=== PATIENT | male | born 1930 | race Caucasian/White ===

== ENCOUNTER 2019-06-03 11:35 | Inpatient (IN) | payer MEDICARE, OTHER ==
[~2019-06-03] VITALS: Ht 170.2 cm; Wt 84.4 kg
[~2019-06-03 11:35] MED LIST: CINNAMON500 MG PO; LASIX40 MG PO; LEVOTHYROXINE75 MCG PO; METOPROLOL SUCC25 MG PO; POTASSIUM CHLO20 ME1 PO; PROBENECID500 MG PO; SIMVASTATIN20 MG PO; SPIRONOLACTONE25 MG PO; TAZTIA XT360 MG PO; VITAMIN B-12500 MCG PO; WARFARIN SODIUM1 MG PO
[2019-06-03] MEDS ORDERED: FUROSEMIDE80 MG PO (16:57)
[2019-06-03] MEDS ORDERED: POTASSIUM CHLO20 ME1 PO (16:58)
--- NOTE | 2019-06-04 12:26 | EKG ---
[facility] [address] [facility] [place] [address] Signed Atrial fibrillation with premature ventricular or aberrantly conducted complexes Left axis deviation Right bundle branch block Inferior infarct , age undetermined Abnormal ECG No previous ECGs available Confirmed by ELMER DOMINGO MD ([id number]) on 06/04/2019 12:25:50 PM Electronically Signed By: ELMER DOMINGO MD 06/04/19 1226 PATIENT NAME: AFSHIN JIMÉNEZ Electrocardiogram DATE OF : [birth year] PHYSICIAN: ELMER DOMINGO MD REPORT #: [id number] REPORT IS CONFIDENTIAL AND NOT TO BE RELEASED WITHOUT AUTHORIZATION
== END 2019-06-08 13:55 | DRG 291 ==
LOC: ED 11:35 → CCU 16:21 → MS 06-04 22:20
PROVIDERS: ADMIT Internal Medicine
DX: I50.33 Acute on chronic diastolic (congestive) heart failure (principal); J96.91 Respiratory failure, unspecified with hypoxia; G93.41 Metabolic encephalopathy; I48.19 Other persistent atrial fibrillation; K59.00 Constipation, unspecified; E03.9 Hypothyroidism, unspecified; G47.33 Obstructive sleep apnea (adult) (pediatric); Z66 Do not resuscitate; Z79.01 Long term (current) use of anticoagulants; Z79.899 Other long term (current) drug therapy
CPT/HCPCS: 36415; 36600; 71045; 80048; 80053; 81001; 82803; 83735; 83880; 84484; 85025; 85610; 93005; 93010; 93306; 94660; 96374; 97110; 97163; 97165; 97535; 99285-25; J1120; J1940

== ENCOUNTER 2019-08-25 20:09 | Observation (INO) | payer MEDICARE, OTHER ==
[~2019-08-25] VITALS: Ht 170.2 cm; Wt 98.5 kg
--- OUTSIDE RECORDS SUMMARY | ~2019-08-25 | XMS | Encounter Summary ---
Demographics + + + | Address | [address] | | | [place] [address] | + + + | Home Phone | | + + + | Preferred Language | Unknown | + + + | Marital Status | | + + + | Bahai Affiliation | NON | + + + | Race | White | + + + | Ethnic Group | Not or | + + + Author + + + | Author | [facility] | + + + | Organization | [facility] | + + + | Address | Unknown | + + + | Phone | Unavailable | + + + Support + + + + + | Name | Relationship | Address | Phone | + + + + + | Lidia Lee | ECON | [address] | | | | | [place], [place] | | | | | [address] | | + + + + + Care Team Providers + +------+ + | Care Employment Trainer Name | Role | Phone | + +------+ + PCP | Unavailable | + +------+ + Encounter Details +--------+ + + + + | Date | Type | Department | Care Team | Description | +--------+ + + + + | 06/23/ | Office | General Internal | Note, Outpatient | Progress Note | | 1997 | Visit-Trans | Medicine [address] | Clinic | | | | chema | [address] | | | | | | Mailcode: [id number] | | | | | | Outpatient Clinic | | | | | | [facility] [address] | | | | | | [place], [place] | | | | | | [address] | | | | | | [phone] | | | +--------+ + + + + Social History + +-------+ +--------+------+ | Tobacco Use | Types | Packs/Day | Years | Date | | | | | Used | | + +-------+ +--------+------+ | Never Assessed | | | | | + +-------+ +--------+------+ + + + | Sex Assigned at | Date Recorded | | | | + + + | Not on file | | + + + + + + + | Job Start Date | Occupation | Industry | + + + + | Not on file | Not on file | Not on file | + + + + + + + + | Travel History | Travel Start | Travel End | + + + + + + | No recent travel history available. 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 After urinalysis showed no evidence of urinary tract infection, and the patient received an oral antibiotic consisting of 750 mg of Cipro, a transrectal ultrasound was performed. This demonstrated significant enlargement of the seminal vesicles but no evidence of tumor extension into the seminal vesicles or extension beyond the margins of the prostate. Biopsies were taken from the right seminal vesicle proximally in the area of its junction with the prostate and distally, with similar biopsies obtained from the left seminal vesicle. The patient tolerated the procedure well and was instructed to return for significant bleeding involving clots from the bladder or rectum, fever over 101 degrees, or any other significant problems. He was informed that full activity could be resumed within 24 hours and was to take another ciprofloxacin 750 mg tablet this evening. He will be informed of the results when they are available. Quoc Gonzalez M.D., P.C. Chief, Urologic Oncology Highway Maintainer, Surgery /[facility] documented in this encounter Plan of Treatment Not on filedocumented as of this encounter Visit Diagnoses Not on filedocumented in this encounter"
--- OUTSIDE RECORDS SUMMARY | ~2019-08-25 | XMS | Encounter Summary ---
Demographics + + + | Address | [address] | | | [place] [address] | + + + | Home Phone | | + + + | Preferred Language | Unknown | + + + | Marital Status | | + + + | Advent Affiliation | Unknown | + + + | Race | Unknown | + + + | Ethnic Group | Unknown | + + + Author + + + | Author | [facility] | | | and [place] | + + + | Organization | [facility] | | | and [place] | + + + | Address | Unknown | + + + | Phone | Unavailable | + + + Support + + +---------+ + | Name | Relationship | Address | Phone | + + +---------+ + | Aminta David | ECON | Unknown | | + + +---------+ + Care Team Providers + +------+ + | Care Bow Maker Production Name | Role | Phone | + +------+ + | Immanuel Oliveros MD | PCP | | + +------+ + Reason for Visit + + + | Reason | Comments | + + + | New Patient | | + + + Evaluate & Treat + +--------+ + + + + | Status | Reason | Specialty | Diagnoses / | Referred By | Referred To | | | | | Procedures | Contact | Contact | + +--------+ + + + + | Authorized | | Plastic | Diagnoses | Philippe, | Pema, | | | | Surgery | Forehead | Jose Patterson, | Cody | | | | | wound | [address] | MD Miguel | | | | | Exposed bone | [address] | [address] | | | | | after | [place], | [place], | | | | | resection of | [place] | [place] [address] | | | | | basal cell | [address] | Phone: | | | | | carcinoma | Phone: | [phone] | | | | | Procedures | [phone] | Fax: | | | | | [place] OFFICE | Fax: | [phone] | | | | | OUTPATIENT | [phone] | | | | | | NEW 60 | | | | | | | MINUTES | | | + +--------+ + + + + Encounter Details +--------+---------+ + + + | Date | Type | Department | Care Team | Description | +--------+---------+ + + + | 04/08/ | Office | [facility] | Cody Mcadams | Basal cell carcinoma | | 2020 | Visit | SURGERY [address] | MD Miguel [address] | (BCC) of scalp | | | | [place], [place] | [address] [place] | (Primary Dx); | | | | [address] | [place] [address] | Hypertension, | | | | [phone] | [phone] | unspecified type | | | | | | | +--------+---------+ + + + Social History + +-------+ +--------+------+ | Tobacco Use | Types | Packs/Day | Years | Date | | | | | Used | | + +-------+ +--------+------+ | Never Smoker | | | | | + +-------+ +--------+------+ + +------+---+ + | Smokeless Tobacco: | Chew | | Quit: | | Former User | | | 04/08/18 | | | | | 85 | + +------+---+ + + + +---------+ + | Alcohol Use | Drinks/Week | oz/Week | Comments | + + +---------+ + | Not Asked | | | | + + +---------+ + + + + | Sex Assigned at [...] + + documented as of this encounter Last Filed Vital Signs + + + + + | Vital Sign | Reading | Time Taken | Comments | + + + + + | Blood Pressure | 122/70 | 04/08/2019 1:05 PM | | | | | PST | | + + + + + | Pulse | 70 | 04/08/2019 1:05 PM | | | | | PST | | + + + + + | Temperature | 36.9 C (98.4 F) | 04/08/2019 1:05 PM | | | | | PST | | + + + + + | Respiratory Rate | - | - | | + + + + + | Oxygen Saturation | 97% | 04/08/2019 1:05 PM | | | | | PST | | + + + + + | Inhaled Oxygen | - | - | | | Concentration | | | | + + + + + | Weight | 91.9 kg (202 lb 9.6 | 04/08/2019 1:05 PM | | | | oz) | PST | | + + + + + | Height | 170.2 cm (5' 7") | 04/08/2019 1:05 PM | | | | | PST | | + + + + + | Body Mass Index | 31.73 | 04/08/2019 1:05 PM | | | | | PST | | + + + + + documented in this encounter Patient Instructions Patient Instructions Etta Chopra RN - 04/08/2019 1:00 PM PST Take no Aspirin containing products for 7 days prior to surgery on 05/07/2019. Hold your Spironolactone on the morning of surgery. I will check with your provider regarding stopping your warfarin prior to surgery. I will c ontact you with recommendations. DO NOT EAT OR DRINK ANYTHING EIGHT HOURS before your surgery. This means no coffee, water, juice or toast on the morning of your surgery. The only exception is essential medicines w ith a small sip of water (or just enough to get the pills down safely). I have faxed the orders for your pre-op testing to [facility]. Please go by the hospital about one week prior to surgery and have the testing completed. On 05/07/2019 check in at Same Day Surgery ([address]) at 11:15 am. Your surgery is called Scalp wound debridement with full-thickness skin graft repair. It will start about 1:15 pm and will finish about 2:45 pm. You will be ready to go home Same Day. Anesthesia type recommended: Choice General IV Sedation with local anesthesia (MAC) IV Sedation Other MAKE ARRANGEMENTS FOR A RESPONSIBLE ADULT TO DRIVE YOU HOME. If you have any questions, please call at . Your nurse's name is Etta DUTTA. Your surgeon's name is Dr. Mcadams. I look forward to your having a safe, successful and comfortable surgery. Sign up for amprice if you want easy access to your medical information online. You can: Review your medications, immunizations, allergies and medical history. View details of your past and upcoming appointments. Sign up for amprice if you want easy access to your medical information online. Only you, your doctor and your health care team are permitted to view the information sent through Certeon. Through amprice you can: ? Review your medications, immunizations, allergies and medical history. ? View details of your past and upcoming appointments. ? Receive test results online no waiting for a phone call or letter ? Review health education topics and discharge instructions provided by your physician. ? Send secure emails to your healthcare team. ? Request renewals of your medications online ? Link your family s accounts to yours for convenient access to appointments, immunizatio n records, growth charts and more. Below are the different ways you can sign up for amprice: ? The first way is to get online at: [email or web address] and sign up directly throug h the website prior to your appointment with us. You can call [phone] ([phone]) if you have any questions or need assistance. ? The second way is through the amprice dominic which can be accessed with any smart phone. Ju st go to your dominic store and look up ServiceNow. ? The third way is to do it while you wait in the room for the doctor at your appointment. The nurse is available if you have any questions or need assistance. You will need the following information to sign up: Email address: User name: Password: Password must be at least 8 characters long, less than 20 characters, and it must have at l east 1 upper case letter and 1 lower case letter as well as at least 1 number. documented in this encounter Progress Notes Cody Mcadams MD - 04/08/2019 1:00 PM PSTFormatting of this note might be differ ent from the original. [facility] ADMIT HISTORY AND PHYSICAL Primary Care Physician: Immanuel Oliveros PATIENT NAME: Jose G Lee : 1930 TODAY'S DATE: 04/08/2019 CHIEF COMPLAINT: New Patient REASON FOR CONSULTATION: Forehead wound Exposed bone after resection of basal cell carcino ma History OF PRESENT ILLNESS: I was asked by Dr. Paez to consult on this patient for Plastic surgery. Jose G Lee is a 89 y.o. male with Forehead wound Exposed bone after resection of basal c ell carcinoma. 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 Les ion was excised 2018 with and repaired with a bilateral advance flap. The flap cherry led and now has a large defect with exposed bone. He is here to see about possible skin chip ting. 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 Current dressing include Aquafore ointment, povidone iodine ointment, gauze pad, and padded bandage. Bandage is changed every few days. Denies noticeable pain, only when being cleaned . Patient is on a very low dose Warfarin 5 days a week for chronic A fib. Patients daughters would like to know if the area would close on its own or if a skin graft is needed. Opioid Risk Tool (ORT): Total Score 0 (04/08/19 7125) (0 to 3 = Low risk: 6% chance of developing problematic behaviors, 4 to 7 = Moderate risk: 28% chance of developing problematic behaviors, 8 or more = High risk: 90% chance of develop ing problematic behaviors.) PAST MEDICAL HISTORY Past Medical History: Diagnosis Date Atrial fibrillation (HCC) Congestive heart failure (CHF) (HCC) Gout Hyperlipidemia Hypertension Hypothyroidism Impaired fasting glucose Peripheral neuropathy Prostate cancer (HCC) Venous insufficiency Vitamin D deficiency PAST SURGICAL HISTORY Past Surgical History: Procedure Laterality Date CARPAL TUNNEL RELEASE Bilateral Wrists Cataract Right 2013 COLONOSCOPY KNEE SURGERY Right 1965 PROSTATECTOMY 1997 CURRENT MEDICATIONS Current Outpatient Medications Medication Sig Dispense Refill cholecalciferol (VITAMIN D-3) 400 UNITS TABS Take 400 Units by mouth Daily. cyanocobalamin (VITAMIN B-12) 500 mcg tablet Take 500 mcg by mouth Daily. dilTIAZem (CARDIZEM CD) 360 MG 24 hr capsule Take 360 mg by mouth Daily. levothyroxine (SYNTHROID) 75 mcg tablet Take 75 mcg by mouth Daily. spironolactone (ALDACTONE) 25 mg tablet Take 25 mg by mouth Daily. warfarin (COUMADIN) 1 mg tablet Take 1 mg by mouth Daily. No current facility-administered medications for this visit. ALLERGIES No Known Allergies FAMILY HISTORY There is no known family history of premature coronary artery disease, CVA nor diabetes. SOCIAL HISTORY The pt reports that he has never smoked. He quit smokeless tobacco use about 35 years ago. His smokeless tobacco use included chew. REVIEW OF SYSTEMS Review of Systems Constitutional: Negative. HENT: Negative. Eyes: Negative. Respiratory: Negative. Cardiovascular: Negative. Gastrointestinal: Negative. Genitourinary: Negative. Musculoskeletal: Negative. Skin: Negative. Neurological: Negative. Endo/Heme/Allergies: Negative. Psychiatric/Behavioral: Positive for memory loss. Some memory loss PHYSICAL EXAM BP 122/70 | Pulse 70 | Temp 36.9 C (98.4 F) (Temporal) | Ht 1.702 m (5' 7") | Wt 91 .9 kg (202 lb 9.6 oz) | SpO2 97% | BMI 31.73 kg/m Wt. Admission: Weight: 91.9 kg (202 lb 9.6 oz) Physical Exam Constitutional: Appearance: Normal appearance. HENT: Head: Normocephalic. Eyes: Extraocular Movements: Extraocular movements intact. Pupils: Pupils are equal, round, and reactive to light. Neck: Musculoskeletal: Normal range of motion and neck supple. Pulmonary: Effort: Pulmonary effort is normal. Breath sounds: Normal breath sounds. Musculoskeletal: Normal range of motion. Skin: General: Skin is warm and dry. Comments: 6 x 3 cm wound, geographical shape, R anterior scalp and onto forehead. 1 x 2 cm area of exposed dessicated bone in the mid portion. Granulating tissue around the nevin n. Contracted rolled skin margins. Extensive actinic and seborrheic skin changes on the sc alp. The surrounding scalp is stiff and immobile. Neurological: General: No focal deficit present. Mental Status: He is alert and oriented to person, place, and time. Psychiatric: Mood and Affect: Mood normal. Behavior: Behavior normal. ASSESSMENT & PLAN: 1. Basal cell carcinoma (BCC) of scalp Right anterior scalp and forehead wound secondary to BCC excision. Mostly granulating tiss ue but there is a limited area of exposed desiccated calvarial bone. It would be difficult for the patient to perform a large flap procedure, but we may be able to skin graft the woun d. The exposed calvarium may be small enough that we can remove the outer table to expose t he diploe and graft directly. Or if it is felt to be too large at the time of surgery, the diploe can be covered with Integra for secondary closure or delayed grafting after revascula rization. The planned procedure, incision and resultant scar, graft donor site, risks and complicatio ns, post op care, and possible need for additional surgery, was discussed. He will need to hold coumadin prior to surgery. Electronically Signed by: Cody Mcadams MD CC: Immanuel Oliveros MD, Jose Paez MD documented in this encounter Plan of Treatment + +------+--------+ + + | Name | Type | Priori | Associated Diagnoses | Order Schedule | | | | ty | | | + +------+--------+ + + | Basic Metabolic | Lab | Routin | Basal cell | 1 Occurrences | | Panel | | e | carcinoma (BCC) of | starting 04/08/2019 | | | | | scalp | until 04/08/2020 | + +------+--------+ + + | CBC with | Lab | Routin | Basal cell | 1 Occurrences | | Differential | | e | carcinoma (BCC) of | starting 04/08/2019 | | | | | scalp | until 04/08/2020 | + +------+--------+ + + | ECG 12 lead | ECG | Routin | Hypertension, | 1 Occurrences | | | | e | unspecified type | starting 04/08/2019 | | | | | Basal cell carcinoma | until 04/08/2020 | | | | | (BCC) of scalp | | + +------+--------+ + + documented as of this encounter Visit Diagnoses + + | Diagnosis | + + | Basal cell carcinoma (BCC) of scalp - Primary | + + | Hypertension, unspecified type | + + documented in this encounter
--- OUTSIDE RECORDS SUMMARY | ~2019-08-25 | XMS | Clinical Summary ---
Demographics + + + | Address | [address] | | | [place] [address] | + + + | Home Phone | | + + + | Preferred Language | Unknown | + + + | Marital Status | | + + + | Faith Affiliation | NON | + + + | Race | White | + + + | Ethnic Group | Not or | + + + Author + + + | Organization | Unknown | + + + | Address | Unknown | + + + | Phone | Unavailable | + + + Support + + + + + | Name | Relationship | Address | Phone | + + + + + | Lidia Lee | ECON | [address] | | | | | [place], [place] | | | | | [address] | | + + + + + Care Team Providers + +------+ + | Care Gauge Maker Name | Role | Phone | + +------+ + PCP | Unavailable | + +------+ + Source Comments MANJU is fully live on both [facility] and [facility] Allergies No Known Allergies Medications Not on file Active Problems Not on file Social History + +-------+ +--------+------+ | Tobacco [...] recent travel history available. | + + Last Filed Vital Signs Not on file Plan of Treatment + + + + + | Health Maintenance | Due Date | Last Done | Comments | + + + + + | Pneumococcal | | | | | vaccination ( | 5 | | | | - PCV13) | | | | + + + + + | Influenza (Flu) | | | | | vaccination (#1) | 9 | | | + + + + + Results Not on filefrom Last 3 Months"
--- OUTSIDE RECORDS SUMMARY | ~2019-08-25 | XMS | Encounter Summary ---
Demographics + + + | Address | [address] | | | [place] [address] | + + + | Home Phone | | + + + | Preferred Language | Unknown | + + + | Marital Status | | + + + | Jew Affiliation | Unknown | + + + | Race | Unknown | + + + | Ethnic Group | Unknown | + + + Author + + + | Author | [facility] | | | and [place] | + + + | Organization | [facility] | | | and [...] Team Providers + +------+ + | Care Field Machinist Name | Role | Phone | + +------+ + | Immanuel Oliveros MD | PCP | | + +------+ + Reason for Visit + + + | Reason | Comments | + + + | Wrist Pain | Bilateral wrist pain | + + + | Numbness | | + + + Encounter Details +--------+---------+ + + + | Date | Type | Department | Care Team | Description | +--------+---------+ + + + | 04/16/ | Office | [facility] | Sincere Damon | Carpal tunnel | | 2012 | Visit | PHYSIATRY [address] | syndrome (Primary | | | | [address] | [address] [place], [place] | Dx); DEGENERATIVE | | | | [place], [place] | [address] | DISC DISEASE, | | | | [address] | | CERVICAL SPINE; | | | | [phone] | | Diabetes mellitus | | | | | | (HCC); Diabetic | | | | | | peripheral | | | | | | neuropathy ([facility]); | | | | | | Paresthesia | +--------+---------+ + + + Social History + +-------+ +--------+------+ | Tobacco Use | Types | Packs/Day | Years | Date | | | | | Used | | + +-------+ +--------+------+ | Never Smoker | | | | | + +-------+ +--------+------+ + + +---------+ + | Alcohol Use [...] + + + | Blood Pressure | 128/85 | 04/16/2012 10:52 AM | | | | | PST | | + + + + + | Pulse | 69 | 04/16/2012 10:52 AM | | | | | PST | | + + + + + | Temperature | - | - | | + + + + + | Respiratory Rate | - | - | | + + + + + | Oxygen Saturation | - | - | | + + + + + | Inhaled Oxygen | - | - | | | Concentration | | | | + + + + + | Weight | 95.3 kg (210 lb) | 04/16/2012 10:52 AM | | | | | PST | | + + + + + | Height | 165.1 cm (5' 5") | 04/16/2012 10:52 AM | | | | | PST | | + + + + + | Body Mass Index | 34.95 | 04/16/2012 10:52 AM | | | | | PST | | + + + + + documented in this encounter Patient Instructions Patient Instructions Sincere Damon MD - 05/11/2012 6:20 AM PSTIce the area as needed for 15-20 minutes several times over the next few days. Watch for signs of infection. Alejandro l with questions or concerns. documented in this encounter Progress Notes Sincere Damon MD - 04/16/2012 10:57 AM PST Subjective: Patient ID: Jose G Lee is a 82 y.o. male. Chief Complaint Patient presents with Wrist Pain Bilateral wrist pain Numbness HPI The patient is being seen today in follow-up for complaints of bilateral wrist pain as well as numbness in the first three digits on both hands. The patient had prior carpal tunne l releases in 1999. He reports that for several years after he had improvement of his sympt oms. The symptoms then started to reoccur approximately 3 years ago. He was having signifi cant neck pain at that time as well and x-rays and an MRI were ordered. He was found to hav e significant DDD and some cervical stenosis. He then had EMG and nerve conduction studies by Dr. 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 He did n ot mention any evidence of cervical radiculopathy. He did have some evidence of a periphera l neuropathy. After the EMG he was then referred to me for potential carpal tunnel injection s. I felt it would be in his best interest to try carpal tunnel splints first. He has trie d them and unfortunately they did not help. He describes his symptoms as burning, uncomfortable numbness. The discomfort is fairly con stant and not necessarily activity related. He does also have significant stiffness in a lo t of his joints including his wrists. Treatments for these complaints have included previous carpal tunnel release in 1998, as we ll as the carpal tunnel splints. (PT, injections, medications, chiropractic, TENS unit, surg eries, etc...) Imaging of the cervical spine, including an MRI were reviewed today in detail with the haroldo ent. I did also personally review the EMG report from Dr. Izaguirre. Patient's medications, allergies, past medical, surgical, social and family histories were reviewed and updated as appropriate. Review of Systems The patient reported only the joint stiffness and numbness/dysesthesias as above. Objective: Physical Exam Nursing note and vitals reviewed. Constitutional: He is oriented to person, place, and time. He appears well-developed and we ll-nourished. HENT: Head: Normocephalic and atraumatic. Neck: No tracheal deviation present. Cardiovascular: Normal rate and regular rhythm. Pulmonary/Chest: Effort normal and breath sounds normal. No respiratory distress. Lymphadenopathy: He has no cervical adenopathy. Neurological: He is alert and oriented to person, place, and time. He has normal strength. No cranial nerve deficit or sensory deficit. He displays no Babinski's sign on the right aby e. He displays no Babinski's sign on the left side. Skin: Skin is warm, dry and intact. No abrasion, no bruising, no ecchymosis, no laceration and no rash noted. Psychiatric: He has a normal mood and affect. His speech is normal and behavior is normal. Thought content normal. Cognition and memory are normal. Musculoskeletal: Strength testing in bilateral upper extremities showed 5/5 strength with n o focal weakness. Range of motion testing of the cervical spine showed limitations in all p lanes but was fairly pain free. Spurling sign was negative. He did not have positive Tinel' s or Phalen's sign. Assessment: 1. Carpal tunnel syndrome 2. DDD cervical spine 3. Diabetes mellitus 4. Diabetic peripheral neuropathy 5. Paresthesia - it is unclear which of the above issues is causing his current symptoms. It is quite possibly a combination of all of the above. Plan: 1. I did review the EMG report by Dr. Aleksandr Izaguirre. Certainly, based on the numbers, th e recurrent or residual carpal tunnel syndrome seems to be the greatest source of the patien jose's current symptoms or at least a significant contributing source. It has been suggested t hat the patient may benefit from carpal tunnel injections and the patient does wish to pursu e this option and consented to the procedure on both wrists today. 2. Description of procedure: Bilateral carpal tunnel injections were performed using ultras ound guidance. After the patient gave consent for the procedure the area for the left wrist injection was located by direct ultrasound visualization. Then the area was sterilized with chlorhexidine scrub and a sterile drape was applied. A sterile probe cover and sterile ultrasound gel was applied to the probe. Then under direct ultrasound guidance a 27-gauge 1-1/2 inch needle w as inserted down into the carpal tunnel just deep to the median nerve. A total volume of 2 mL including 1 mL of triamcinolone ( 40 milligrams per mL) and 1 mL of 1% lidocaine was then infused. Pictures were taken to document needle placement. The needle was then removed and the area was cleaned and bandaged. The procedure was then repeated in the same manner on th e right. The patient tolerated the procedure well. There were no complications. The patien jose was instructed to ice the area for 15-20 minutes several times over the next few days and to watch for any signs of infection. 3. The above procedures may prove both therapeutic and diagnostic. I will contact the pat ient in a few weeks to see how he responded to the procedure and further plan of care will b e determined at that time. documented in this encounter Plan of Treatment Not on filedocumented as of this encounter Visit Diagnoses + + | Diagnosis | + + | Carpal tunnel syndrome - Primary | + + | DEGENERATIVE DISC DISEASE, CERVICAL SPINE Degeneration of cervical intervertebral | | disc | + + | Diabetes mellitus (HCC) Type II or unspecified type diabetes mellitus without mention | | of complication, not stated as uncontrolled | + + | Diabetic peripheral neuropathy (HCC) Type II or unspecified type diabetes mellitus | | with neurological manifestations, not stated as uncontrolled | + + | Paresthesia Disturbance of skin sensation | + + documented in this encounter
--- OUTSIDE RECORDS SUMMARY | ~2019-08-25 | XMS | Encounter Summary ---
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 Please go by the hospital about one week prior to surgery and have the testing completed. On 05/07/2019 check in at Same Day Surgery (corner of [address]) at 11:15 am. Your surgery is called [...] successful and comfortable surgery. Sign up for [employer] if you want easy access to your medical information online. You can: Review your medications, immunizations, allergies and medical history. View details of your past and upcoming appointments. Sign up for [employer] if you want easy access to your medical information online. Only you, your doctor and your health care team are permitted to view the information sent through [employer]. Through [employer] you can: ? Review your medications, immunizations, [...] different ways you can sign up for [employer]: ? The first way is to get online at: [email or web address] and sign up directly throug h the website prior to your appointment with us. You can call [phone] ([phone]) if you have any questions or need assistance. ? The second way is through the [employer] dominic which can be accessed with any smart phone. Ju st go to your dominic store and look up [employer]. ? The third way is to do [...] might be differ ent from the original. [facility] ADMIT HISTORY AND PHYSICAL Primary Care [...] Risk Tool (ORT): Total Score 0 (04/08/19 1665) (0 to 3 = Low risk: 6% [...]
--- OUTSIDE RECORDS SUMMARY | ~2019-08-25 | XMS | Encounter Summary ---
Demographics + + + | Address | [address] | | | [place] [address] | + + + | Home Phone | | + + + | Preferred Language | Unknown | + + + | Marital Status | | + + + | Taoist Affiliation | NON | + + + | Race | White | + + + | Ethnic Group | Not or | + + + Author + + + | Author | [facility] | + + + | Organization | [facility] | + + + | Address | Unknown | + + + | Phone | Unavailable | + + + Support + + + + + | Name | Relationship | Address | Phone | + + + + + | Lidia Lee | ECON | [address] | | | | | [place], [place] | | | | | [address] | | + + + + + Care Team Providers + +------+ + | Care Fund Accounting Manager Name | Role | Phone | + +------+ + PCP | Unavailable | + +------+ + Encounter Details +--------+ + + + + | Date | Type | Department | Care Team | Description | +--------+ + + + + | 10/06/ | Office | [facility] | Note, Outpatient | Progress Note | | 1998 | Visit-Trans | MEDICINE | Clinic | | | | cribed | | | | +--------+ + + + [...] as of this encounter Progress Notes Interface, Rug Scratcher In - 04/08/2006 5:02 AM [facility] DATE: 10/06/97 UROLOGY/ONCOLOGY CLINIC Mr. Lee is a 67-year-old male who was found to have elevated PSA of 20.9 with a 5% free PSA fraction, and an abnormal digital rectal examination. He underwent biopsy of the prostate revealing Maury score of 3+/-4, adenocarcinoma of the left base, left mid and right base. This was an amuploid tumor. He subsequently underwent radical retropubic prostatectomy with bilateral pelvic lymph node dissection on 08/03/97. His postoperative course was unremarkable. His Bolden catheter was removed in two weeks and he has had no problems since that time. He returns today for routine followup. Patient states that he is currently dry as far as urinary continence is concerned. He wears no pads. He does complain of nocturia times one at night. He has no significant urge component. He is happy as far as this is concerned. Patient has had no erection since surgery and he is not interested in discussing any therapy at this time although outlined what possible therapies would be available for him if he continued to have erectile dysfunction after surgery. He brings his PSA in from his primary care doctor. It is at 6 weeks (09/15/97) undetectable at less than 0.04 by his laboratory's standards. Patient has no other concerns or complaints today. OBJECTIVE: Abdomen is soft and nontender. The incision is healing well without evidence of infection or hernia. Extremities no edema. No calf tenderness. ASSESSMENT: Doing well after radical prostatectomy with undetectable PSA. PLAN: 1. Followup with us in four months or if patient desires he may have further followup care performed up by his primary care physician, Dr. Immanuel Giles. We recommend PSA to be checked every 3 months for the first year and then yearly after that. 2. I explained to patient that he needs to be concerned and notify us if he has problems with decreasing force of urinary stream, bony pain or PSA begins to elevate on routine testing. Johnathan Bull M.D. Resident, Urology DAVID/ariel cc: SHAVONNE GILES MD [address] [place] [place] [address] documented in this encounter Plan of Treatment Not on filedocumented as of this encounter Visit Diagnoses Not on filedocumented in this encounter"
--- OUTSIDE RECORDS SUMMARY | ~2019-08-25 | XMS | Encounter Summary ---
Demographics + + + | Address | [address] | | | [place] [address] | + + + | Home Phone | | + + + | Preferred Language | Unknown | + + + | Marital Status | | + + + | Yarsanism Affiliation | NON | + + + | Race | White | + + + | Ethnic Group | Not or | + + + Author + + + | Author | [facility] | + + + | Organization | [facility] | + + + | Address | Unknown | + + + | Phone | Unavailable | + + + Support + + + + + | Name | Relationship | Address | Phone | + + + + + | Lidia Lee | ECON | [address] | | | | | [place], [place] | | | | | [address] | | + + + + + Care Team Providers + +------+ + | Care Director Of Professional Services Name | Role | Phone | + +------+ + PCP | Unavailable | + +------+ + Encounter Details +--------+ + + + + | Date | Type | Department | Care Team | Description | +--------+ + + + + | 08/03/ | Results | LAB [facility] [address] | Mayela, Faculty | | | 1997 | Only | [address] | [phone] | | | | | [place] | | | | | | [address] | | | | | | [phone] | | | +--------+ + + + [...] + + documented as of this encounter Plan of Treatment Not on filedocumented as of this encounter Procedures + +--------+ + + + | Procedure Name | Priori | Date/Time | Associated Diagnosis | Comments | | | ty | | | | + +--------+ + + + | SURGICAL PATHOLOGY | Routin | 08/03/1997 | | Results for this | | | e | | | procedure are in the | | | | | | results section. | + +--------+ + + + documented in this encounter Results SURGICAL PATHOLOGY (08/03/1997) + + + + + + | Component | Value | Ref Range | Performed | Pathologist | | | | | At | Signature | + + + + + + | SURGICAL | SOURCE OF SPECIMEN: SEE | | [facility] | | | PATHOLOGY | RESULTS | | DEPARTMENT | | | | Preliminary | | OF | | | | History:FROZEN SECTION | | PATHOLOGY | | | | DIAGNOSISRIGHT PELVIC | | | | | | NODE (SPECIMEN #1): NO | | | | | | TUMOR SEENLEFT PELVIC | | | | | | NODE (SPECIMEN #2): NO | | | | | | TUMOR SEEN | | | | | | Confirmed by: Belinda | | | | | | Lili Andre and Mathew | | | | | | Lili White | | | | | | CLINICAL HISTORY | | | | | | Patient Age: [age] year old | | | | | | man Patient | | | | | | History: Prostate | | | | | | specific antigens (PSA) | | | | | | of 27 and high | | | | | | gradeadenocarcinoma of | | | | | | the prostate found by | | | | | | physical exam to have a | | | | | | nodule.Biopsy revealed | | | | | | extensive tumor. Rule | | | | | | out tumor extension | | | | | | beyond thecapsule and/or | | | | | | at the surgical | | | | | | margins. GROSS | | | | | | DESCRIPTION | | | | | | Specimens received: | | | | | | Two fresh, one in | | | | | | formalin #1 RIGHT | | | | | | PELVIC NODE (FS): | | | | | | Received fresh are | | | | | | several | | | | | | unorientedfragments of | | | | | | fibroadipose tissue | | | | | | measuring 5.5 x 2.7 x | | | | | | 1.5 cm. in | | | | | | looseaggregate. These | | | | | | tissues are sectioned | | | | | | and a manufacturer's representative | | | | | | lymph nodeis used for | | | | | | frozen section | | | | | | diagnosis. The remaining | | | | | | tissue fragments | | | | | | aresectioned. #2 | | | | | | LEFT PELVIS NODE (FS): | | | | | | Received fresh are | | | | | | several fragments | | | | | | ofunoriented | | | | | | fibroadipose tissue | | | | | | measuring 5.6 x 4.9 x | | | | | | 2.4 cm. in | | | | | | looseaggregate. These | | | | | | tissue fragments are | | | | | | sectioned. #3 | | | | | | PROSTATE: Received is a | | | | | | prostatectomy specimen | | | | | | weighing 52 g. | | | | | | andmeasuring 6 x 4.5 x | | | | | | 3.5 cm. The | | | | | | attached portion of left | | | | | | seminal vesicle | | | | | | measures 2 x 1 x 1 cm. | | | | | | andthe left vas deferens | | | | | | measures 3 cm. in | | | | | | length by 0.5 cm. in | | | | | | diameter.The attached | | | | | | portion of right seminal | | | | | | vesicle measures 2.5 x | | | | | | 1 x 1 cm.and the right | | | | | | vas deferens measures | | | | | | 2.6 cm. in length by 0.5 | | | | | | cm. indiameter. | | | | | | The left half of | | | | | | the specimen is inked | | | | | | black and the right half | | | | | | is inkedblue. The | | | | | | specimen is serially | | | | | | sectioned and notable | | | | | | for a gordillo | | | | | | poorlycircumscribed area | | | | | | along the middle left | | | | | | lobe which measures 1.7 | | | | | | cm. ingreatest | | | | | | dimension. There is an | | | | | | underlying circumscribed | | | | | | white nodule ofpossible | | | | | | benign prostatic | | | | | | hypertrophy deep to this | | | | | | area measuring 1.5cm. | | | | | | in greatest diameter. | | | | | | CASSETTE INDEX#1 | | | | | | RIGHT PELVIC NODE | | | | | | (FS):1A, tissue used for | | | | | | frozen section | | | | | | diagnosis, resubmitted, | | | | | | RS1B, all possible lymph | | | | | | nodes, RS#2 LEFT PELVIS | | | | | | NODE (FS):2A, tissue | | | | | | used for frozen section | | | | | | diagnosis, resubmitted, | | | | | | RS2B, all possible lymph | | | | | | nodes, RS#3 | | | | | | PROSTATE:3A-B, apical | | | | | | urethral margin, RS3C-D, | | | | | | surgical margin at | | | | | | base, RS3E-F, complete | | | | | | manufacturer's representative section | | | | | | of prostatic [id number], | | | | | | right and left middle | | | | | | lobes including area of | | | | | | possible tumor, RS3J-K, | | | | | | prostatic base, RS3L-M, | | | | | | seminal vesicles and vas | | | | | | deferens, RS All | | | | | | tissue sections taken | | | | | | are submitted for | | | | | | microscopic | | | | | | evaluation.WSS/GORDON:tg | | | | | | SYNOPTIC | | | | | | DESCRIPTION - PROSTATE, | | | | | | RADICAL PROSTATECTOMY | | | | | | FOR CARCINOMA | | | | | | TUMOR TYPE: | | | | | | Adenocarcinoma of | | | | | | prostateGLEASON'S SCORE | | | | | | 3/5+4/5 = 7/10TUMOR | | | | | | LOCATION: Quadrant: | | | | | | RIGHT LEFT | | | | | | | | | | | | [place] | | | | | | [place] | | | | | | | | | | | | Mid | | | | | | Mid | | | | | | | | | | | | BaseVASCULAR INVASION: | | | | | | | | | | | | NOPERINEURAL INVASION: | | | | | | | | | | | | YESTUMOR INVADES TO | | | | | | PROSTATIC APEX: | | | | | | NOTUMOR INVADES INTO | | | | | | PROSTATIC CAPSULE, BUT | | | | | | NOT BEYOND: | | | | | | YESSTAGING: | | | | | | Extracapsular | | | | | | extension | | | | | | | | | | | | (Stage pT3a) | | | | | | SURGICAL | | | | | | MARGINS: Tumor present | | | | | | at surgical margin: | | | | | | YES Specify | | | | | | site: Left | | | | | | midNON-NEOPLASTIC | | | | | | PROSTATE: | | | | | | Unremarkable: NO | | | | | | Abnormalities: | | | | | | Nodular | | | | | | hyperplasiaLYMPH NODES: | | | | | | Involved nodes/total | | | | | | nodes: 0/9 FINAL | | | | | | DIAGNOSIS#1 RIGHT | | | | | | PELVIC NODE: FOUR | | | | | | LYMPH NODES WITH NO | | | | | | TUMOR SEEN (0/4)#2 LEFT | | | | | | PELVIS NODE: FIVE | | | | | | LYMPH NODES WITH NO | | | | | | TUMOR SEEN (0/5)#3 | | | | | | PROSTATE: 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 Case reviewed | | | | | | by: Shari Julien, | | | | | | Student FellowCase | | | | | | staffed by: Jason Heredia | | | | | | New, | | | | | | M.D. / My | | | | | | electronic signature | | | | | | indicates that I have | | | | | | personally reviewed | | | | | | alldiagnostic slides, | | | | | | the gross and/or | | | | | | microscopic portion of | | | | | | thisreport and | | | | | | formulated the final | | | | | | diagnosis. | | | | + + + + + + + + | Specimen | + + | Other | + + + + + + + | Performing | Address | City/State/Zipcode | Phone Number | | Organization | | | | + + + + + | [facility] | [address] | [place] [address] | | | PATHOLOGY | [address] | | | + + + + + documented in this encounter Visit Diagnoses Not on filedocumented in this encounter"
--- OUTSIDE RECORDS SUMMARY | ~2019-08-25 | XMS | Encounter Summary ---
Demographics + + + | Address | [address] | | | [place] [address] | + + + | Home Phone | | + + + | Preferred Language | Unknown | + + + | Marital Status | | + + + | Jain Affiliation | NON | + + + | Race | White | + + + | Ethnic Group | Not or | + + + Author + + + | Author | [facility] | + + + | Organization | [facility] | + + + | Address | Unknown | + + + | Phone | Unavailable | + + + Support + + + + + | Name | Relationship | Address | Phone | + + + + + | Lidia Lee | ECON | [address] | | | | | [place], [place] | | | | | [address] | | + + + + + Care Team Providers + +------+ + | Care Sheltered Workshop Executive Director Name | Role | Phone | + +------+ + PCP | Unavailable | + +------+ + Encounter Details +--------+ + + + + | Date | Type | Department | Care Team | Description | +--------+ + + + + | 08/05/ | Discharge | Allergy Clinic at | Summary, Discharge | D/C Summary ODDS | | 1997 | Summary-Tra | [facility] [address] | | | | | nscribed | [address] | | | | | | [address] | | | | | | [facility], 7th floor | | | | | | [place], [place] | | | | | | [address] | | | | | | [phone] | | | +--------+ + + + [...] + + documented as of this encounter Discharge Summaries Interface, Methodologist In - 04/15/2006 3:05 AM PST [address] [address] [facility] MEDICAL SUMMARY OF HOSPITALIZATION Med Rec No.: [id number] Admission Date: 08/03/97 Name: Jose G Lee Discharge Date: 08/05/97 STAFF PHYSICIAN: Quoc Gonzalez M.D[facility] Chief, Urologic Oncology Policy And Planning Manager, Surgery PRINCIPAL FINAL DIAGNOSIS: Prostate carcinoma. PRINCIPAL PROCEDURE: Radical retropubic prostatectomy and bilateral pelvic lymph node dissection. 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 He had previously undergone follow up seminal vesicle biopsies which were negative. He preferred to undergo a radical retropubic prostatectomy. Intraoperative frozen sections from a pelvic lymph node dissection were negative. HOSPITAL COURSE: The patient was admitted postoperatively from the above procedure which he tolerated very well, with the frozen sections of the lymph nodes obviously negative, given that he also underwent the radical retropubic prostatectomy. He was start don sips on postoperative day one and advanced to clears and a regular diet by postoperative day two. He remained afebrile with stable vital signs and minimal output from his Kwadwo-Last drain which was also discontinued on the morning of postoperative day two. The patient is being discharged to home on postoperative day two. He was tolerating a regular diet, passing gas and having undergone leg bag and night bag instructions for Bolden catheter management. CONDITION ON DISCHARGE: Stable. DISCHARGE MEDICATION(S): Tylox 1-2 tablets q. 6 h. p.r.n. Colace 100 mg p.o. b.i.d. Bactrim DS 1 tablet p.o. b.i.d., to be taken after the catheter is removed. DISCHARGE INSTRUCTION(S): Discharge Activity: His activity is restricted to no lifting of greater than 10 pounds. Discharge Diet: Resume a normal preoperative diet. Follow-up Recommendations: 1. Follow up with Doctor Quoc Gonzalez in Urology in 8 weeks. 2. He will follow up with his referring physician in two weeks for catheter removal. Gume Ly M.D. Resident, Urology Quoc Gonzalez M.D[facility] Chief, Urologic Oncology Policy And Planning Manager, SurgerySUZYK/rb P cc: ANNEMARIE GILES MD [address] [place] [address] documented in this encounter Plan of Treatment Not on filedocumented as of this encounter Visit Diagnoses Not on filedocumented in this encounter"
--- OUTSIDE RECORDS SUMMARY | ~2019-08-25 | XMS | Encounter Summary ---
Demographics + + + | Address | [address] | | | [place] [address] | + + + | Home Phone | | + + + | Preferred Language | Unknown | + + + | Marital Status | | + + + | Cheondoism Affiliation | NON | + + + [...] [place], [place] | | | | | [address] | | + + + + + Care Team Providers + +------+ + | Care Director Insurance Name | Role | Phone | + +------+ + PCP | Unavailable | + +------+ + Encounter Details +--------+ + + + + | Date | Type | Department | Care Team | Description | +--------+ + + + + | 08/02/ | Results | | Other, Faculty | | | 1997 | Only | | [phone] | | +--------+ + + + + [...] | + +--------+ + + + | X-RAY CHEST 2 VIEW | Priori | 08/02/1997 | | Results for this | | | ty | 4:40 PM | | procedure are in the | | | | PDT | | results section. | + +--------+ + + + documented in this encounter Results CHEST 2 VIEW (08/02/1997 4:40 PM PDT) + + + + + + | Component | Value | Ref Range | Performed | Pathologist | | | | | At | Signature | + + + + + + | CHEST, 2 | Radiologist 1: SATH[facility] | | | | | [place] | SUSIE Costa M.D.TWO VIEW | | | | | STEREO | CHEST: 08/02/97. | | | | | | Dictated: 08/02/97 | | | | | | COMPARISON: No | | | | | | comparison. FINDINGS: | | | | | | The lungs are clear. | | | | | | The heart is normal in | | | | | | size andconfiguration. | | | | | | Atherosclerotic | | | | | | changes are seen in the | | | | | | tortuousaorta. No | | | | | | effusion is evident. | | | | | | Degenerative changes | | | | | | are seen in thethoracic | | | | | | spine with mild anterior | | | | | | wedging of several | | | | | | midthoracicvertebral | | | | | | bodies. IMPRESSION: No | | | | | | evidence of an acute | | | | | | cardiopulmonary process. | | | | | | END OF IMPRESSION: | | | | + + + + + + + + | Specimen | + + | | + + + + + | Narrative | Performed At | + + + | Ordered by SEDRICK RAMIREZ M.D. | | + + + + +---------+ + + | Performing | Address | City/State/Zipcode | Phone Number | | Organization | | | | + +---------+ + + | [facility] DEPARTMENT OF | | | | | RADIOLOGY | | | | + +---------+ + + documented in this encounter Visit Diagnoses Not on filedocumented in this encounter"
--- OUTSIDE RECORDS SUMMARY | ~2019-08-25 | XMS | Encounter Summary ---
Demographics + + + | Address | [address] | | | [place] [address] | + + + | Home Phone | | + + + | Preferred Language | Unknown | + + + | Marital Status | | + + + | Latter-Day Affiliation | NON | + + + | Race | White | + + + | Ethnic Group | Not or | + + + Author + + + | Author | [facility] | + + + | Organization | [facility] | + + + | Address | Unknown | + + + | Phone | Unavailable | + + + Support + + + + + | Name | Relationship | Address | Phone | + + + + + | Lidia Lee | ECON | [address] | | | | | [place], [place] | | | | | [address] | | + + + + + Care Team Providers + +------+ + | Care Ammonia Worker Name | Role | Phone | + +------+ + PCP | Unavailable | + +------+ + Encounter Details +--------+ + + + + | Date | Type | Department | Care Team | Description | +--------+ + + + + | 06/24/ | Office | General Internal | Note, Outpatient | Progress Note | | 1997 | Visit-Trans | Medicine [address] | Clinic | | | | chema | [address] | | | | | | Mailcode: [id number] | | | | | | Outpatient Clinic | | | | | | [facility] [address] | | | | | | [place], [place] | | | | | | [address] | | | | | | [phone] | | | +--------+ + + + [...] as of this encounter Progress Notes Interface, Upstream Biomanufacturing Technician In - 04/18/2006 3:12 AM PST CLINIC DATE: 06/24/97 UROLOGY ONCOLOGY CLINIC SUBJECTIVE: This 67-year-old white male found on digital rectal examination to have a prostatic nodule. His serum PSA obtained at that time was 20.9 with a 5% free PSA fraction. For that reason, the patient was referred to Dr. Emmanuel in Urology undergoing a transrectal ultrasound with biopsy of the prostate. Biopsies revealed extensive adenocarcinoma involving four millimeters of Greenwood score 3+4 adenocarcinoma of the left base, six millimeters Greenwood score 7 adenocarcinoma of the left mid, and 10 milligrams of Greenwood score 6 adenocarcinoma of the right base. Ploide studies revealed an anuploid tumor. The patient was advised regarding his options and now comes to [facility] for opinions about treatment options. PAST MEDICAL HISTORY: Operative procedures: Open excision of damaged meniscus, 1950, right knee; excision of pilonidal cyst in 1954; bilateral carpal tunnel release in 1989. Major illnesses: Chronic hypertension, otherwise negative. MEDICATIONS: 1. Cardura 8 milligrams q day. 2. Allopurinol 300 milligrams q day. 3. Dyazide one tablet q day. 4. Aspirin one adult tablet q day. ALLERGIES: None known. 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 Tobacco use: The patient used one pack or less of cigarettes per day for severals, none for the last several years. Alcohol: Moderate use on a social basis. FAMILY HISTORY: Father age 77 of unknown causes. Mother age 66 from heart attack. REVIEW OF SYSTEMS: Basically noncontributory except for mild voiding dysfunction and is detailed in the clinical record of this date. OBJECTIVE: Blood pressure 164/90, temperature 95.5, weight 194. GENERAL: well-developed, well-nourished white male in no acute distress. ABDOMEN: Soft, nontender without organomegaly. Normal bowel sounds, no masses palpated. GENITALIA: Both testes descended without masses. Penis normal. Scrotum without lesions. RECTAL: The prostate is enlarged with a palpable area of firmness in the right midlobe, and an area of increased firmness along the midportion of the left lobe. Outside slides are not available for review. ASSESSMENT: Extensive adenocarcinoma of the prostate with several areas of pattern for tumor indicating an elevated PSA of 20. These findings of high grade tumor and PSA of 20 or greater indicate a high possibility of tumor involving the pelvic nodes, and tumor extending down the margins of the prostate. These possibilities are of extreme significance particularly prognostically to the patient and indicating the possibility of future therapeutic intervention effectiveness. My specific advice to the patient was that he undergo a biopsy of the seminal vesicles to eliminate seminal vesical involvement and if the seminal vesicles are not involved then a pelvic node dissection would be appropriate to eliminate the possibility of pelvic node involvement. The different types of sima dissection including open lymph node dissection, versus laparoscopic, essential risks and benefits of each were discussed in detail. The patient is aware that a laparoscopic node dissection has reduced morbidity with more rapid return to work, however, there are specific problems that can be associated with this procedure such as injury to adjacent visceral vascular structures, particularly vascular perforation from the trocars, complications of the CO2 insufflation such as CO2 embolus, irritation to the gastrointestinal tract. The patient appears to understand and desires to undergo a needle biopsy prior to embarking upon any further treatment. Quoc Gonzalez M.D[facility] Chief, Urologic Oncology Railroad Mechanic, Surgery /drew cc: BRITT GILES MD [address] [place] [address] 2 [facility] [address] HI[address] E[address]UEL DO [address] [facility] [id number] documented in this encounter Plan of Treatment Not on filedocumented as of this encounter Visit Diagnoses Not on filedocumented in this encounter"
--- OUTSIDE RECORDS SUMMARY | ~2019-08-25 | XMS | Encounter Summary ---
Demographics + + + | Address | [address] | | | [place] [address] | + + + | Home Phone | | + + + | Preferred Language | Unknown | + + + | Marital Status | | + + + | Latter Day Affiliation | NON | + + + | Race | White | + + + | Ethnic Group | Not or | + + + Author + + + | Author | [facility] | + + + | Organization | [facility] | + + + | Address | Unknown | + + + | Phone | Unavailable | + + + Support + + + + + | Name | Relationship | Address | Phone | + + + + + | Lidia Lee | ECON | [address] | | | | | [place], [place] | | | | | [address] | | + + + + + Care Team Providers + +------+ + | Care Economics Instructor Name | Role | Phone | + [...] Clinic | | | | | | [facility] [address] | | | | | | [place], [place] | | | | | | [address] | | | | | | [phone] | | | +--------+ + + + [...] as of this encounter Progress Notes Interface, Plate And Weld Inspector In - 04/18/2006 3:12 AM PST CLINIC [...] revealed extensive adenocarcinoma involving four millimeters of Leasburg score 3+4 adenocarcinoma of the left base, six millimeters Leasburg score 7 adenocarcinoma of the left mid, and 10 milligrams of Leasburg score 6 adenocarcinoma of the right base. Ploide studies revealed an anuploid tumor. The patient was advised regarding his options and now comes to [facility] for opinions about treatment options. 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 Tobacco use: The patient used [...] Quoc Gonzalez M.D., P.C. Chief, Urologic Oncology Plant Control Aide, Surgery /drew cc: BRITT GILES MD [address] [place] [address] 2 [facility] [address] HIEN EMMANU[address] DO [address] [facility] [address] documented in this encounter Plan of Treatment Not on filedocumented as of this encounter Visit Diagnoses Not on filedocumented in this encounter"
--- OUTSIDE RECORDS SUMMARY | ~2019-08-25 | XMS | Encounter Summary ---
Demographics + + + | Address | [address] | | | [place] [address] | + + + | Home Phone | | + + + | Preferred Language | Unknown | + + + | Marital Status | | + + + | Islam Affiliation | Unknown | + + + | Race | Unknown | + + + | Ethnic Group | Unknown | + + + Author + + + | Author | [facility] | | | and [place] | + + + | Organization | [facility] | | | and [...] Team Providers + +------+ + | Care Health Service Coordinator Name | Role | Phone | + +------+ + | Immanuel Oliveros MD | PCP | | + +------+ + Encounter Details +--------+ + + + + | Date | Type | Department | Care Team | Description | +--------+ + + + + | 06/13/ | Lab | [facility] | Ranjith Mcintosh | Acute on chronic | | 2020 | Requisition | [facility] | MD [address]i [address] | diastolic | | | | [address] [place] | [address] | (congestive) heart | | | | [place] | [address] | failure (HCC); | | | | [address] | [place] [address] | Metabolic | | | | [phone] | [phone] | encephalopathy; | | | | | | Essential (primary) | | | | | | hypertension | +--------+ + + + + Social [...] | + +--------+ + + + | BASIC METABOLIC | Routin | 06/14/2019 | Acute on chronic | Results for this | | PANEL | e | 1:30 PM | diastolic | procedure are in the | | | | PDT | (congestive) heart | results section. | | | | | failure (HCC) | | | | | | Metabolic | | | | | | encephalopathy | | | | | | Essential (primary) | | | | | | hypertension | | + +--------+ + + + documented in this encounter Results Basic Metabolic Panel (06/14/2019 1:30 PM PDT) + + + + + + | Component | Value | Ref Range | Performed | Pathologist | | | | | At | Signature | + + + + + + | Na | 137 | 136 - 145 | [facility] | | | | | mmol/L | [facility] | [facility] - | | | | | | LABORATORY | | + + + + + + | K | 3.1 (L) | 3.4 - 5.1 | [facility] | | | | | mmol/L | [facility] | [facility] | | | [facility] - | | | | | | LABORATORY | | + + + + + + | Cl | 94 (L) | 98 - 107 mmol/L | [facility] | | | | | | [facility] | | [facility] | [facility] | | | | | | [facility] - | | | | | | LABORATORY | | + + + + + + | CO2 | 34 (H) | 20 - 31 mmol/L | [facility] | | | | | | [facility] | | | | | [facility] | | | | | | [facility] - | | | | | | LABORATORY | | + + + + + + | Anion Gap | 9 | 3 - 16 mmol/L | [facility] | | | | | | [facility] | | [facility] | | [facility] | | | | | | [facility] - | | | | | | LABORATORY | | + + + + + + | Glucose | 159 (H) | 60 - 106 mg/dL | [facility] | | | | | | [facility] | | | | | | [facility] | | | | | | [facility] - | | | | | | LABORATORY | | + + + + + + | BUN | 37 (H) | 9 - 23 mg/dL | [facility] | | | | | | [facility] | | | [facility] | | [facility] | | | | | | C[facility] - | | | | | | LABORATORY | | + + + + + + | Creatinine | 1.30 | 0.70 - 1.30 | [facility] | | | | | mg/dL | [facility] | | | | | | [facility] | | | | | | CENTER - | | | | | | LABORATORY | | + + + + + + | eGFR if not | 52 (L)Comment: | >=60 | [facility] | | | | GLOMERULAR FILTRATION | mL/min/1.73m2 | [facility] | | | ANGUILLAN | RATE,ESTIMATED | | MEDICAL | | | | mL/min/1.99e6Pfwn than | | CENTER - | | | | 60 Chronic kidney | | LABORATORY | | | | disease,if found over a | | | | | | 3-month period.Less than | | | | | | 15 Kidney failureFor | | | | | | | | | | | | Americans,multiply the | | | | | | calculated GFR by 1.21. | | | | | | | | | | + + + + + + | Calcium | 9.6 | 8.7 - 10.4 | [facility] | | | | | mg/dL | [facility] | | | | | | [facility] | | | | | | CENTER - | | | | | | LABORATORY | | + + + + + + | BUN/Creatin | 28.5 | | [facility] | | | ine Ratio | | | [facility] | | | | | | [facility] | | | | | | CENTER - | | | | | | LABORATORY | | + + + + + + + + | Specimen | + + | Blood | + + + + + + + | Performing | Address | City/State/Zipcode | Phone Number | | Organization | | | | + + + + + | [facility] 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
--- OUTSIDE RECORDS SUMMARY | ~2019-08-25 | XMS | Encounter Summary ---
Demographics + + + | Address | [address] | | | [place] [address] | + + + | Home Phone | | + + + | Preferred Language | Unknown | + + + | Marital Status | | + + + | Caodaism Affiliation | Unknown | + + + | Race | Unknown | + + + | Ethnic Group | Unknown | + + + Author + + + | Author | [facility] | | | and [place] | + + + | Organization | [facility] | | | [...] Team Providers + +------+ + | Care Executive Wellness Programs Director Name | Role | Phone | + +------+ + PCP | Unavailable | + +------+ + Encounter Details +--------+ + + + + | Date | Type | Department | Care Team | Description | +--------+ + + + + | 12/04/ | Abstract | [facility] | DATA MIGRATION GARRICK | | | 2011 | | Conversion Location | SR | | | | | [address] [facility] | | | | | | [place], [place] | | | | | | [address] | | | | | | [phone] | | | +--------+ + + + [...] + + + | Blood Pressure | 128/82 | 10/01/2011 12:00 AM | | | | | PDT | | + + + + + | Pulse | - | - | | + [...] Weight | 95.3 kg (210 lb) | 11/28/2011 12:00 AM | | | | | PDT | | + + + + + | Height | 165.7 cm (5' 5.25") | 01/19/2010 12:00 AM | | | | | PDT | | + + + + + | Body Mass Index | 34.68 | 01/19/2010 12:00 AM | | | | | PDT | | + + + + + documented in this encounter Plan of Treatment Not on filedocumented as of this encounter Visit Diagnoses Not on filedocumented in this encounter
--- OUTSIDE RECORDS SUMMARY | ~2019-08-25 | XMS | Encounter Summary ---
Demographics + + + | Address | [address] | | | [place] [address] | + + + | Home Phone | | + + + | Preferred Language | Unknown | + + + | Marital Status | | + + + | Adventism Affiliation | Unknown | + + + | Race | Unknown | + + + | Ethnic Group | Unknown | + + + Author + + + | Author | [facility] | | | and [place] | + + + | Organization | [facility] | | | [...] Team Providers + +------+ + | Care Gifts Officer Name | Role | Phone | + +------+ + | Immanuel Oliveros MD | PCP | | + +------+ + Encounter Details +--------+ + + + + | Date | Type | Department | Care Team | Description | +--------+ + + + + | 04/05/ | Abstract | [facility] | Cody Mcadams | | | 2020 | | SURGERY [address] | MD [address] | | | | | [place] | [address] [facility] | | | | | [address] | [place] [address] | | | | | [phone] | [phone] | | | | | | | | +--------+ + + [...]
--- OUTSIDE RECORDS SUMMARY | ~2019-08-25 | XMS | Encounter Summary ---
Demographics + + + | Address | [address] | | | [place] [address] | + + + | Home Phone | | + + + | Preferred Language | Unknown | + + + | Marital Status | | + + + | Mandaen Affiliation | NON | + + + | Race | White | + + + | Ethnic Group | Not or | + + + Author + + + | Author | [facility] | + + + | Organization | [facility] | + + + | Address | Unknown | + + + | Phone | Unavailable | + + + Support + + + + + | Name | Relationship | Address | Phone | + + + + + | Lidia Lee | ECON | [address] | | | | | [place], [place] | | | | | [address] | | + + + + + Care Team Providers + +------+ + | Care Cash Room Clerk Name | Role | Phone | + [...] [address] | | | | | | [place], [place] | | | | | | [address] | | | | | | [phone] | | | +--------+ + + + [...] as of this encounter Progress Notes Interface, Chief Nuclear Medicine Technologist In - 04/18/2006 3:12 AM PST CLINIC [...] Quoc Gonzalez M.D., P.C. Chief, Urologic Oncology Forestry Biology Specialist, Surgery [facility] documented in this encounter Plan of Treatment Not on filedocumented as of this encounter Visit Diagnoses Not on filedocumented in this encounter"
--- OUTSIDE RECORDS SUMMARY | ~2019-08-25 | XMS | Encounter Summary ---
Demographics + + + | Address | [address] | | | [place] [address] | + + + | Home Phone | | + + + | Preferred Language | Unknown | + + + | Marital Status | | + + + | Sabianist Affiliation | Unknown | + + + | Race | Unknown | + + + | Ethnic Group | Unknown | + + + Author + + + | Author | [facility] | | | and [place] | + + + | Organization | [facility] | | [...] Team Providers + +------+ + | Care Furnace Installer Helper Name | Role | Phone | + +------+ + | Immanuel Oliveros MD | PCP | | + +------+ + Reason for Visit + + + | Reason | Comments | + + + | Coordination Of Care | | + + + Encounter Details +--------+ + + + + | Date | Type | Department | Care Team | Description | +--------+ + + + + | 04/09/ | Telephone | [facility] | Cody Mcadams | Coordination Of Care | | 2020 | | SURGERY [address] | MD [address] | | | | | [place] | [address] [facility] | | | | | [address] | [place] [address] | | | | | [phone] | [phone] | | | | | | | [...]
--- OUTSIDE RECORDS SUMMARY | ~2019-08-25 | XMS | Encounter Summary ---
Demographics + + + | Address | [address] | | | [place] [address] | + + + | Home Phone | | + + + | Preferred Language | Unknown | + + + | Marital Status | | + + + | Holiness Affiliation | NON | + + + [...] [place], [place] | | | | | [address] | | + + + + + Care Team Providers + +------+ + | Care Aluminum Welder Name | Role | Phone | + +------+ + PCP | Unavailable | + +------+ + Encounter Details +--------+ + + + + | Date | Type | Department | Care Team | Description | +--------+ + + + + | 08/02/ | Results | | Other, Faculty | | | 1997 | Only | | [phone] | | +--------+ + + + + [...] | | + +---------+ + + | [facility] DEPARTMENT OF | | | | | RADIOLOGY | | | | + +---------+ + + documented in this encounter Visit Diagnoses Not on filedocumented in this encounter"
--- OUTSIDE RECORDS SUMMARY | ~2019-08-25 | XMS | Encounter Summary ---
Demographics + + + | Address | [address] | | | [place] [address] | + + + | Home Phone | | + + + | Preferred Language | Unknown | + + + | Marital Status | | + + + | Judaism Affiliation | Unknown | + + + | Race | Unknown | + + + | Ethnic Group | Unknown | + + + Author + + + | Author | [facility] | | | and [place] | + + + | Organization | [facility] | | | [...] Team Providers + +------+ + | Care Radiator Repairer Name | Role | Phone | + [...] [address] | | | | | [place], [place] | [address] [facility] | | | | | [address] | [place] [address] | | | | | [phone] | [phone] | | | | | | | [...]
--- OUTSIDE RECORDS SUMMARY | ~2019-08-25 | XMS | Encounter Summary ---
Demographics + + + | Address | [address] | | | [place] [address] | + + + | Home Phone | | + + + | Preferred Language | Unknown | + + + | Marital Status | | + + + | Mormon Affiliation | Unknown | + + + | Race | Unknown | + + + | Ethnic Group | Unknown | + + + Author + + + | Author | [facility] | | | and [place] | + + + | Organization | [facility] | | [...] Team Providers + +------+ + | Care Sales Agent Insurance Name | Role | Phone | + +------+ + PCP | Unavailable | + +------+ + Encounter Details +--------+ + + + + | Date | Type | Department | Care Team | Description | +--------+ + + + + | 12/12/ | Hospital | [facility] | | | | 1998 | Encounter | [facility] | | | | | | CENTER [address] | | | | | | [place] | | | | | | [address] | | | | | | [phone] | | | +--------+ + + + [...]
--- OUTSIDE RECORDS SUMMARY | ~2019-08-25 | XMS | Encounter Summary ---
Demographics + + + | Address | [address] | | | [place] [address] | + + + | Home Phone | | + + + | Preferred Language | Unknown | + + + | Marital Status | | + + + | Church Affiliation | Unknown | + + + | Race | Unknown | + + + | Ethnic Group | Unknown | + + + Author + + + | Author | [facility] | | | and [place] | + + + | Organization | [facility] | | | [...] Team Providers + +------+ + | Care Utilities Estimator And Drafter Name | Role | Phone | + [...] | +--------+ + + + + | 04/08/ | Telephone | [facility] | Cody Mcadams | Coordination Of Care | | 2020 | | SURGERY [address] | MD [address] | | | | | [address] [place], [place] | [address] [facility] | | | | | [address] | [place] [address] | | | | | [phone] | [phone] | | | | | | | [...]
--- OUTSIDE RECORDS SUMMARY | ~2019-08-25 | XMS | Encounter Summary ---
Demographics + + + | Address | [address] | | | [place] [address] | + + + | Home Phone | | + + + | Preferred Language | Unknown | + + + | Marital Status | | + + + | Sabianism Affiliation | NON | + + + | Race | White | + + + | Ethnic Group | Not or | + + + Author + + + | Author | [facility] | + + + | Organization | [facility] | + + + | Address | Unknown | + + + | Phone | Unavailable | + + + Support + + + + + | Name | Relationship | Address | Phone | + + + + + | Lidia Lee | ECON | [address] | | | | | [place], [place] | | | | | [address] | | + + + + + Care Team Providers + +------+ + | Care Sieve Repairer Name | Role | Phone | + +------+ + PCP | Unavailable | + +------+ + Encounter Details +--------+ + + + + | Date | Type | Department | Care Team | Description | +--------+ + + + + | 06/23/ | Results | LAB CORE [address] | [facility], Faculty | | | 1997 | Only | [address] | [phone] | | | | | [place] | | | | | | [address] | | | | | | [phone] | | | +--------+ + + + [...] + | SURGICAL PATHOLOGY | Routin | 06/23/1997 | | Results for this | | | e | | | procedure are in the | | | | | | results section. | + +--------+ + + + documented in this encounter Results SURGICAL PATHOLOGY (06/23/1997) + + + + + + | Component | Value | Ref Range | Performed | Pathologist | | | | | At | Signature | + + + + + + | SURGICAL | SOURCE OF SPECIMEN: SEE | | [facility] | | | PATHOLOGY | RESULTS | | DEPARTMENT | | | | Preliminary | | OF | | | | History:CLINICAL HISTORY | | PATHOLOGY | | | | Patient Age: 67 | | | | | | year old man | | | | | | Patient History: New | | | | | | diagnosis of prostate | | | | | | cancer, clinician wishes | | | | | | torule out extension | | | | | | into seminal vesicles. | | | | | | GROSS DESCRIPTION | | | | | | Specimens | | | | | | received: Four in | | | | | | formalin #1 RIGHT | | | | | | PROXIMAL SEMINAL | | | | | | VESICLE: The specimen | | | | | | consists of | | | | | | twofilamentous fragments | | | | | | of gordillo-white, soft | | | | | | tissue measuring 1.4 cm. | | | | | | inaggregate length by | | | | | | less than 0.1 cm. in | | | | | | diameter. The specimen | | | | | | iswrapped and submitted | | | | | | in toto in cassette 1. | | | | | | #2 LEFT PROXIMAL | | | | | | SEMINAL VESICLE: The | | | | | | specimen consists of | | | | | | onefilamentous fragment | | | | | | of goridllo-white, soft | | | | | | tissue measuring 2.0 cm. | | | | | | inlength by less than | | | | | | 0.1 cm. in diameter. The | | | | | | specimen is wrapped | | | | | | andsubmitted in toto in | | | | | | cassette 2. #3 | | | | | | RIGHT DISTAL SEMINAL | | | | | | VESICLE: The specimen | | | | | | consists of | | | | | | onefilamentous fragment | | | | | | of gordillo-white, soft | | | | | | tissue measuring 0.7 cm. | | | | | | inlength by less than | | | | | | 0.1 cm. in diameter. The | | | | | | specimen is wrapped | | | | | | andsubmitted in toto in | | | | | | cassette 3. #4 | | | | | | LEFT DISTAL SEMINAL | | | | | | VESICLE: The specimen | | | | | | consists of | | | | | | threefilamentous | | | | | | fragments of gordillo-white, | | | | | | soft tissue measuring | | | | | | 1.7 cm. inaggregate | | | | | | length by less than 0.1 | | | | | | cm. in diameter. The | | | | | | specimen iswrapped and | | | | | | submitted in toto in | | | | | | cassette 4. 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, | | | | | | JARROD'S GRADE II/V, | | | | | | INVOLVING 10% OF | | | | | | CORE; NO SEMINAL VESICLE | | | | | | PRESENT#3 RIGHT DISTAL | | | | | | SEMINAL VESICLE: | | | | | | SEMINAL VESICLE WITH | | | | | | NO DIAGNOSTIC | | | | | | ABNORMALITY#4 LEFT | | | | | | DISTAL SEMINAL VESICLE: | | | | | | SEMINAL VESICLE WITH | | | | | | NO DIAGNOSTIC | | | | | | ABNORMALITY Case | | | | | | reviewed by: Amanda | | | | | | MS Clinton IIICase | | | | | | staffed by: Aida | | | | | | Lili KangAlso seen | | | | | | by: Mathew White | | | | | | LiliT:[birth year]97:dunia My | | | | | | [...] | + + + + + | [facility] | [address] | [place] [address] | | | PATHOLOGY | [address] | | | + + + + + documented in this encounter Visit Diagnoses Not on filedocumented in this encounter"
--- OUTSIDE RECORDS SUMMARY | ~2019-08-25 | XMS | Encounter Summary ---
Demographics + + + | Address | [address] | | | [place] [address] | + + + | Home Phone | | + + + | Preferred Language | Unknown | + + + | Marital Status | | + + + | Jew Affiliation | Unknown | + + + | Race | Unknown | + + + | Ethnic Group | Unknown | + + + Author + + + | Author | [facility] | | | and [place] | + + + | Organization | [facility] | | [...] Team Providers + +------+ + | Care Sql Server Consultant Name | Role | Phone | + [...] [address] | | | | | [place], [place] | [address] [facility] | | | | | [address] | [place] [address] | | | | | [phone] | [phone] | | | | | | | [...]
--- OUTSIDE RECORDS SUMMARY | ~2019-08-25 | XMS | Clinical Summary ---
Demographics + + + | Address | [address] | | | [place] [address] | + + + | Home Phone | | + + + | Preferred Language | Unknown | + + + | Marital Status | | + + + | Mu-Ism Affiliation | Unknown | + + + | Race | Unknown | + + + | Ethnic Group | Unknown | + + + Author + + + | Author | [facility] | | | and [place] | + + + | Organization | [facility] | | [...] Team Providers + +------+ + | Care Mail Room Clerk Name | Role | Phone | + +------+ + | Immanuel Oliveros MD | PCP | | + +------+ + Allergies No Known Allergies Medications + + + +---------+------+------+-------+ | Medication | Sig | Dispensed | Refills | Star | End | Statu | | | | | | t | Date | s | | | | | | Date | | | + + + +---------+------+------+-------+ | cholecalciferol | Take 400 Units by | | 0 | 09/1 | | Activ | | (VITAMIN D-3) 400 | mouth Daily. | | | 4/20 | | e | | UNITS TABS | | | | 12 | | | + + + +---------+------+------+-------+ | dilTIAZem | Take 360 mg by mouth | | 0 | | | Activ | | (CARDIZEM CD) 360 MG | Daily. | | | | | e | | 24 hr capsule | | | | | | | + + + +---------+------+------+-------+ | levothyroxine | Take 75 mcg by mouth | | 0 | | | Activ | | (SYNTHROID) 75 mcg | Daily. | | | | | e | | tablet | | | | | | | + + + +---------+------+------+-------+ | spironolactone | Take 25 mg by mouth | | 0 | | | Activ | | (ALDACTONE) 25 mg | Daily. | | | | | e | | tablet | | | | | | | + + + +---------+------+------+-------+ | warfarin | Take 1 mg by mouth | | 0 | | | Activ | | (COUMADIN) 1 mg | Daily. | | | | | e | | tablet | | | | | | | + + + +---------+------+------+-------+ | cyanocobalamin | Take 500 mcg by | | 0 | | | Activ | | (VITAMIN B-12) 500 | mouth Daily. | | | | | e | | mcg tablet | | | | | | | + + + +---------+------+------+-------+ Active Problems + + + | Problem | Noted Date | + + + | Basal cell carcinoma (BCC) of scalp | 04/09/2019 | + + + + + | Overview: Added automatically from request for surgery | | [id number] | + + + + + | CARPAL TUNNEL SYNDROME | 11/28/2011 | + + + | PARESTHESIA | 11/28/2011 | + + + | DEGENERATIVE DISC DISEASE, CERVICAL SPINE | 11/28/2011 | + + + | DIABETES MELLITUS | 11/28/2011 | + + + | DIABETIC PERIPHERAL NEUROPATHY | 11/28/2011 | + + + | OBSTRUCTIVE SLEEP APNEA | 01/19/2010 | + + + Encounters +--------+ + + + + | Date | Type | Specialty | Care Team | Description | +--------+ + + + + | 06/13/ | Off-Site | Anticoagulation | Addison Jo, | Atrial fibrillation, | | 2019 | Visit | | SHRUB PLANTER | unspecified type | | | | | | (HCC) (Primary Dx); | | | | | | Monitoring for | | | | | | long-term | | | | | | anticoagulant use; | | | | | | Non-healing surgical | | | | | | wound, initial | | | | | | encounter | +--------+ + + + + | 06/13/ | Lab | Lab | Ranjith Mcintosh | 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); | | | | | | Metabolic | | | | | | encephalopathy; | | | | | | Essential (primary) | | | | | | hypertension | +--------+ + + + + from Last 3 Months Immunizations + + + + | Name | Administration Dates | Next Due | + + + + | HEP A/HEP B, 3 DOSE | 06/03/2005, 09/25/2004, 08/24/2004 | | | (ADULT) | | | + + + + | INFLUENZA PF | 01/30/2017, 01/08/2010 | | | TRIVALENT(PED/ADOL/A | | | | ANNA CHARLES | | | + + + + | INFLUENZA TRIV | 12/20/2010 | | | W/PRES(PED/ADOL/ADUL | | | | T),MULTIDOSE | | | + + + + | INFLUENZA, [id number], | 04/03/2009 | | | UNSPECIFIED | | | + + + + | INFLUENZA, | 01/28/2007 | | | UNSPECIFIED | | | | FORMULATION | | | + + + + | PNEUMOCOCCAL | 06/01/2018 | | | CONJUGATE 13-VALENT | | | | (PCV13) | | | + + + + | TDAP, (ADOL/ADULT) | 08/10/2011 | | + + + + | ZOSTER, 1 DOSE | 03/29/2008 | | | (ZOSTAVAX) | | | + + + + Social History + [...] | + + Last Filed Vital Signs + + + + + | Vital Sign | Reading | Time Taken | Comments | + + + + + | Blood Pressure | 127/67 | 06/14/2019 7:36 AM | | | | | PDT | | + + + + + | Pulse | 64 | 06/14/2019 7:36 AM | | | | | PDT | | + + + + + | Temperature | 36.2 C (97.2 F) | 06/14/2019 7:36 AM | | | | | PDT | | + + + + + | Respiratory Rate | 20 | 06/14/2019 7:36 AM | | | | | PDT | | + + + + + | Oxygen Saturation | 96% | 06/14/2019 7:36 AM | | | | | PDT [...] | | + + + + + Plan of Treatment + + + + + | Health Maintenance | Due Date | Last Done | Comments | + + + + + | Diabetic Eye Exam | | | | | | 8 | | | + + + + + | Diabetic Foot Exam | | | | | | 8 | | | + + + + + | Hemoglobin A1c | | | | | Screening | 8 | | | + + + + + | Vaccine: Zoster (2 | | 03/29/2008 | | | of 3) | 0 | | | + + + + + | Adult Annual | | | | | Wellness Visit | 0 | | | + + + + + | Microalbumin | | | | | Screening | 0 | | | + + + + + | Vaccine: | | 06/01/2018 | | | Pneumococcal 65+ (2 | 0 | | | | of 2 - PPSV23) | | | | + + + + + | Vaccine: | | 08/10/2011 | | | Dtap/Tdap/Td (2 - | 2 | | | | Td) | | | | + + + + + | Vaccine: Influenza | Completed | 04/19/2019, 01/30/2017, | | | | | 12/20/2010, Additional history | | | | | exists | | + + + + + Procedures + +--------+ + + + | [...] | + +--------+ + + + | POC PT/INR | Routin | 06/14/2019 | Atrial | Results for this | | FINGERSTICK | e | 6:50 AM | fibrillation, | procedure are in the | | | | PDT | unspecified type | results section. | | | | | (HCC) Monitoring | | | | | | for long-term | | | | | | anticoagulant use | | + +--------+ + + + from Last 3 Months Results Basic Metabolic Panel (06/14/2019 1:30 PM PDT) + + + + + + | Component | Value | Ref Range | Performed | Pathologist | | | | | At | Signature | + + + + + + | Na | 137 | 136 - 145 | [facility] | | | | | mmol/L | [facility] | | | | | | [facility] | | | | | | C[facility] - | | | | | | LABORATORY | | + + + + + + | K | 3.1 (L) | 3.4 - 5.1 | [facility] | | | | | mmol/L | [facility] | | | | [...] [facility] | | | [facility] | [facility] | | | | | | [facility] - | | | | | | LABORATORY | | + + + + + + | BUN | 37 (H) | 9 - 23 mg/dL | [facility] | | | | | | [facility] | | | | | | [facility]ICAL | | | | | | CENTER - | | | | | | LABORATORY | | + + + + + + | Creatinine | 1.30 | 0.70 - 1.30 | [facility] | | | | | mg/dL | [facility] | | | | | [facility] | | | | | | C[facility] - | | | | | | LABORATORY | | + + + + + + | eGFR if not | 52 (L)Comment: | >=60 | [facility] | | | | GLOMERULAR FILTRATION | mL/min/1.73m2 | [facility] | | | [facility] | RATE,ESTIMATED | | MEDICAL | | | | mL/min/1.85b3Goal than | | CENTER - | | [...] | | | | | mg/dL | [facility] | | | | | | [...] | + + + + + | [facility] | [address] | [place] | [phone] | | [facility] | | [address] | | | - LABORATORY | | | | + + + + + POCT PT/INR fingerstick (06/14/2019 6:50 AM PDT) + +---------+ + + + | Component | Value | Ref Range | Performed | Pathologist | | | | | At | Signature | + +---------+ + + + | INR, POC | 3.2 (A) | 0.9 - 1.2 | | | + +---------+ + + + + + | Specimen | + + | Blood | + + from Last 3 Months Insurance + +--------+ +--------+ + +--------+ | Payer | Benefi | Subscriber | Effect | Phone | Address | Type | | | t Plan | ID | dioni | | | | | | / | | Dates | | | | | | Group | | | | | | + +--------+ +--------+ + +--------+ | MEDICARE | MEDICA | [id number] | 03/24/19 | [phone] | | Medica | | | RE | | 07-Pre | 5 | | re | | | PART A | | sent | | | | | | AND B | | | | | | + +--------+ +--------+ + +--------+ | MODA | MODA | [id number] | 05/23/19 | [phone] | [address] | Indemn | | | HEALTH | | 08-Pre | 9 | [phone] | ity | | | MDCR | | sent | | [place], | | | | [place] | | | | [place] [address] | | + +--------+ +--------+ + +--------+ + +--------+ +--------+ + + | Guarantor Name | Accoun | Relation to | Date | Phone | Billing Address | | | t Type | Patient | of | | | | | | | | | | + +--------+ +--------+ + + | ObinnaJose G lemos | Person | Self | [birth year] | [address] | | | al/Fam | | 1930 | [phone] | [place] [address] | | | ruben | | | 6 (Home) | | + +--------+ +--------+ + + Advance Directives + + + + + | Type | Date Recorded | Patient | Explanation | | | | Schedule Checker | | + + + + + | Power of | | | | | Country Director | | | | + + + + + | Advance | | | | | Directive | | | | + + + + +
--- OUTSIDE RECORDS SUMMARY | ~2019-08-25 | XMS | Encounter Summary ---
Demographics + + + | Address | [address] | | | [place] [address] | + + + | Home Phone | | + + + | Preferred Language | Unknown | + + + | Marital Status | | + + + | Advent Affiliation | Unknown | + + + | Race | Unknown | + + + | Ethnic Group | Unknown | + + + Author + + + | Author | [facility] | | | and [place] | + + + | Organization | [facility] | | | [...] Team Providers + +------+ + | Care Metal Cleaner Name | Role | Phone | + [...] + | 04/16/ | Office | [facility] | Sincere Damon | Carpal tunnel | | 2012 | Visit | PHYSIATRY [address] | syndrome (Primary | | | | [address] | [address] [place], [place] | Dx); DEGENERATIVE | | | | [place], [place] | [address] | DISC DISEASE, | | | | [address] | | CERVICAL SPINE; | | | | [phone] | | Diabetes mellitus | | | | | | (HCC); Diabetic | | | | | | peripheral | | | | | | neuropathy ([facility]); | | | | | | Paresthesia [...]
--- OUTSIDE RECORDS SUMMARY | ~2019-08-25 | XMS | Encounter Summary ---
Demographics + + + | Address | [address] | | | [place] [address] | + + + | Home Phone | | + + + | Preferred Language | Unknown | + + + | Marital Status | | + + + | Samaritan Affiliation | Unknown | + + + | Race | Unknown | + + + | Ethnic Group | Unknown | + + + Author + + + | Author | [facility] | | | and [place] | + + + | Organization | [facility] | | | [...] Team Providers + +------+ + | Care Traffic Representative Name | Role | Phone | + +------+ + | Immanuel Oliveros MD | PCP | | + +------+ + Reason for Visit +--------+ + | Reason | Comments | +--------+ + | Apnea | | +--------+ + Encounter Details +--------+---------+ + + + | Date | Type | Department | Care Team | Description | +--------+---------+ + + + | 11/25/ | Office | [facility] | Julian Clement PA | DANA on CPAP (Primary | | 2014 | Visit | SLEEP DISORDER [address] | [address] | Dx) | | | | [address] | [place] | | | | | [place] [address] | [address] | | | | | [phone] | | | +--------+---------+ + + + [...] + + + | Blood Pressure | 122/66 | 11/25/2013 10:47 AM | | | | | PDT | | + + + + + | Pulse | 110 | 11/25/2013 10:47 AM | | | | | PDT | | + + + + + | Temperature | - | - | | + + + + + | Respiratory Rate | 16 | 11/25/2013 10:47 AM | | | | | PDT | | + + + + + | Oxygen Saturation | 96% | 11/25/2013 10:47 AM | | | | | PDT | | + + + + + | Inhaled Oxygen | - | - | | | Concentration | | | | + + + + + | Weight | 99.8 kg (220 lb 1.6 | 11/25/2013 10:47 AM | | | | oz) | PDT | | + + + + + | Height | - | - | | + + + + + | Body Mass Index | 34.47 | 01/28/2013 11:18 AM | | | | | PST | | + + + + + documented in this encounter Progress Notes Julian Clement PA - 11/25/2013 10:54 AM PDT Subjective: Patient ID: Jose G Lee is a 83 y.o. male. HPI last office visit was: 01/19/2010 date of polysomnography: 12/12/1998 AHI: RDI: 99.7 O2%: 87% Machine type: Anabela with nasal mask obtained from: [facility] [place] pressure: 12 cm Nights using CPAP: 254/254 % of nights >4 hours: 99% average usage (all nights): 7.6 average usage (nights used): 7.6 AHI: n/a Jose G comes in for CPAP compliance. He continues to have excellent compliance, wearing his CPAP on a nightly basis for the duration of his sleep. He cannot sleep without it. His cu rrent CPAP appears to be nearly nine years old. He would likely benefit from using a variab le pressure machine. His pressure has not been checked since 1998. He feels that his apnea is we controlled and his machine is still working well. He will consider changing it when necessary. We discussed when he is able to replace his equipment. I gave him a handout mehreen t shows when his insurance will accept him replacing each item. We also discussed the recom mended cleaning schedule for his equipment. He cleans his equipment regularly and replaces his mask pretty consistently, but has not replaced his heated tube in several years. I have discussed the download and results of the paperwork in detail. He is unchanged or i mproved in nearly all categories, with no areas of concern. The download shows that his demarco ks are well controlled. Review of Systems Objective: Physical Exam Assessment: Problem #1: OBSTRUCTIVE SLEEP APNEA (327.23) This is controlled with CPAP. His CPAP compliance is going well. His machine is nearly ni ne years old and could be replaced, but he feels that it is still working well. Plan: He is to continue with CPAP indefinitely. I have recommended that he replace his CPAP when he notices that it is not working properly. I have also recommended that he touch base wit h his medical supplier twice per year to ensure that his equipment is satisfactory. I will follow up again in 2 years, sooner prn. At that time we will reassess with all appr opiate paperwork. Thirty minutes were spent [id number], with the majority of time spent i n counseling. Julian Clement PA-C cc: Immanuel Oliveros MD Lia Pryor, Master of Arts - 11/25/2013 10:32 AM PDTFormatting of this note might be different from the origina l. 11/25/13 1000 [place] Depression Inventory-II Depression Score 8 - Minimal depression Insomnia Severity Index Insomnia Severity Index 2 [place] Sleepiness Scale Sitting and reading 1 Watching TV 1 Sitting, inactive in a public place (e.g. a theatre or a meeting) 0 As a passenger in a car for an hour without a break 0 Lying down to rest in the afternoon when circumstances permit 1 Sitting and talking to someone 0 Sitting quietly after a lunch without alcohol 1 In a car, while stopped for a few minutes in traffic 0 Total score 4 SF-36v2 Score PF 42.3 RP 39.71 BP 46.06 GH 50.55 VT 45.85 SF 56.85 RE 44.22 MH 55.64 PCS 41.7 MCS 54.51 documented in this enc ounter Plan of Treatment Not on filedocumented as of this encounter Visit Diagnoses + + | Diagnosis | + + | DANA on CPAP - Primary Obstructive sleep apnea (adult) (pediatric) | + + documented in this encounter"
--- OUTSIDE RECORDS SUMMARY | ~2019-08-25 | XMS | Encounter Summary ---
Demographics + + + | Address | [address] | | | [place] [address] | + + + | Home Phone | | + + + | Preferred Language | Unknown | + + + | Marital Status | | + + + | Restorationism Affiliation | Unknown | + + + | Race | Unknown | + + + | Ethnic Group | Unknown | + + + Author + + + | Author | [facility] | | | and [place] | + + + | Organization | [facility] | | [...] + +------+ + | Care Director Of Solutions Architecture Name | Role | Phone | + +------+ + | Immanuel Oliveros MD | PCP | | + +------+ + Reason for Visit + + + | Reason | Comments | + + + | Carpal Tunnel | wants injections | + + + Encounter Details +--------+---------+ + + + | Date | Type | Department | Care Team | Description | +--------+---------+ + + + | 01/28/ | Office | [facility] | Sincere Damon | Carpal tunnel | | 2012 | Visit | PHYSIATRY [address] | syndrome (Primary | | | | [address] | [place], [place] | Dx) | | | | [place], [place] | [address] | | | | | [address] | | | | | | [phone] | | | +--------+---------+ + + + [...] + + + | Blood Pressure | 147/74 | 01/28/2013 11:18 AM | | | | | PST | | + + + + + | Pulse | 85 | 01/28/2013 11:18 AM | | | | | PST | | + + + + + | Temperature | - | - | | + + + + + | Respiratory Rate | 14 | 01/28/2013 11:18 AM | | | | | PST | | + + + + + | Oxygen Saturation | - | - | | + + + + + | Inhaled Oxygen | - | - | | | Concentration | | | | + + + + + | Weight | 93 kg (205 lb) | 01/28/2013 11:18 AM | | | | | PST | | + + + + + | Height | 170.2 cm (5' 7") | 01/28/2013 11:18 AM | | | | | PST | | + + + + + | Body Mass Index | 32.11 | 01/28/2013 11:18 AM | | | | | PST | | + + + + + documented in this encounter Progress Notes Sincere Damon MD - 01/28/2013 1:41 PM PST Subjective: Patient ID: Jose G Lee is a 82 y.o. male. Chief Complaint Patient presents with Carpal Tunnel wants injections HPI The patient is being seen today in follow-up for complaints of bilateral wrist pain as well as numbness in the first three digits on both hands. The patient had prior carpal tunne l releases in 1999. He reports that for several years after he had improvement of his sympt oms. The symptoms then started to reoccur approximately 3-4 years ago. He was having signi ficant neck pain at that time as well and x-rays and an MRI were ordered. He was found to h ave significant DDD and some cervical stenosis. He then had EMG and nerve conduction studie s by Dr. 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 He did not mention any evidence of cervical radiculopathy. He did have some evidence of a periphe ral neuropathy. After the EMG he was then referred to me for potential carpal tunnel injecti ons. I felt it would be in his best interest to try carpal tunnel splints first. He did tr y them and unfortunately they did not help. He did receive carpal tunnel injections and his symptoms improved for several months. Overall he was happy with the results and wishes to repeat the injections again today. He describes his symptoms as burning, uncomfortable numbness. The discomfort is fairly con stant and not necessarily activity related. He does also have significant stiffness in a lo t of his joints including his wrists. Imaging of the cervical spine, including an MRI were reviewed today. I did also personally review the EMG report from Dr. Izaguirre. IMPRESSION: 1. Carpal tunnel syndrome 2. DDD cervical spine 3. Diabetes mellitus 4. Diabetic peripheral neuropathy PLAN: A review of the EMG report by Dr. Aleksandr Izaguirre and his response to the prior inject ions would suggest to me that the recurrent or residual carpal tunnel syndrome seems to be t he greatest source of the patient's current symptoms or at least a significant contributing source. The patient has benefited from carpal tunnel injections previously and the patient d oes wish to pursue this option and consented to the procedure on both wrists today. Potenti al risks and alternative treatments were discussed in detail. Description of procedure: Bilateral carpal tunnel injections were performed using ultrasoun d guidance. After the patient gave consent for the procedure the area for the right wrist injection was located by direct ultrasound visualization. Then the area was sterilized with chlorhexidin e scrub and a sterile drape was applied. A sterile probe cover and sterile ultrasound gel wa s applied to the probe. Then under direct ultrasound guidance a 27-gauge 1-1/2 inch needle was inserted down into the carpal tunnel just deep to the median nerve. A total volume of 2 mL including 1 mL of triamcinolone ( 40 milligrams per mL) and 1 mL of 1% lidocaine was the n infused. Pictures were taken to document needle placement. The needle was then removed an d the area was cleaned and bandaged. The procedure was then repeated in the same manner on t he left. The patient tolerated the procedure well. There were no complications. The patien t was instructed to ice the area for 15-20 minutes several times over the next few days and to watch for any signs of infection. The patient may be a candidate at some point for carpal tunnel release and I would be happy to provide a referral if he wishes to pursue that option. documented in this encounter Plan of Treatment Not on filedocumented as of this encounter Visit Diagnoses + + | Diagnosis | + + | Carpal tunnel syndrome - Primary | + + documented in this encounter
--- OUTSIDE RECORDS SUMMARY | ~2019-08-25 | XMS | Encounter Summary ---
Demographics + + + | Address | [address] | | | [place] [address] | + + + | Home Phone | | + + + | Preferred Language | Unknown | + + + | Marital Status | | + + + | Faith Affiliation | Unknown | + + + | Race | Unknown | + + + | Ethnic Group | Unknown | + + + Author + + + | Author | [facility] | | | and [place] | + + + | Organization | [facility] | | | and [...] Providers + +------+ + | Care Health Insurance Agent Name | Role | Phone | + [...] | +--------+ + + + + | 05/04/ | Telephone | [facility] [place] [facility] | Cody Mcadams | Coordination Of Care | | 2020 | | SURGERY [address] | MD [address] | | | | | [place], [place] | [address] [facility] | | | | | [address] | [place] [address] | | | | | [phone] | [phone] | | | | | | | [...]
--- OUTSIDE RECORDS SUMMARY | ~2019-08-25 | XMS | Encounter Summary ---
Demographics + + + | Address | [address] | | | [place] [address] | + + + | Home Phone | | + + + | Preferred Language | Unknown | + + + | Marital Status | | + + + | Jewish Affiliation | NON | + + + | Race | White | + + + | Ethnic Group | Not or | + + + Author + + + | Author | [facility] | + + + | Organization | [facility] | + + + | Address | Unknown | + + + | Phone | Unavailable | + + + Support + + + + + | Name | Relationship | Address | Phone | + + + + + | Lidia Lee | ECON | [address] | | | | | [place], [place] | | | | | [address] | | + + + + + Care Team Providers + +------+ + | Care Group Home Worker Name | Role | Phone | + +------+ + PCP | Unavailable | + +------+ + Encounter Details +--------+ + + + + | Date | Type | Department | Care Team | Description | +--------+ + + + + | 08/05/ | Discharge | Allergy Clinic at | Summary, Discharge | D/C Summary ODDS | | 1997 | Summary-Tra | [facility] [address] | | | | | nscribed | [address] | | | | | | [address] | | | | | | [facility] [address], 7th floor | | | | | | [place], [place] | | | | | | [address] | | | | | | [phone] | | | +--------+ + + + [...] as of this encounter Discharge Summaries Interface, Sound Cutter In - 04/15/2006 3:05 AM PST [address] [address] [facility] MEDICAL SUMMARY OF HOSPITALIZATION Med Rec No.: [id number] Admission Date: 08/03/97 Name: Jose G Lee Discharge Date: 08/05/97 STAFF PHYSICIAN: Quoc Gonzalez M[facility] Chief, Urologic Oncology Drying Room Attendant, Surgery PRINCIPAL FINAL DIAGNOSIS: Prostate carcinoma. PRINCIPAL PROCEDURE: Radical retropubic prostatectomy and bilateral pelvic lymph node dissection. REASON FOR ADMISSION: The patient is a 67-year-old male with elevated prostatic-specific antigen and abnormal rectal examination in addition to prostate biopsies significant for adenocarcinoma in both lobes of the prostate, with a high Girard grade of 3+3/10. He had previously undergone [...] Quoc Gonzalez M.D[facility] P.C[facility] Chief, Urologic Oncology Drying Room Attendant, SurgerySUZYK/rb P cc: ANNEMARIE GILES MD [address] [place] [address] documented in this encounter Plan of Treatment Not on filedocumented as of this encounter Visit Diagnoses Not on filedocumented in this encounter"
--- OUTSIDE RECORDS SUMMARY | ~2019-08-25 | XMS | Encounter Summary ---
Demographics + + + | Address | [address] | | | [place] [address] | + + + | Home Phone | | + + + | Preferred Language | Unknown | + + + | Marital Status | | + + + | Adventism Affiliation | NON | + + + | Race | White | + + + | Ethnic Group | Not or | + + + Author + + + | Author | [facility] | + + + | Organization | [facility] | + + + | Address | Unknown | + + + | Phone | Unavailable | + + + Support + + + + + | Name | Relationship | Address | Phone | + + + + + | Lidia Lee | ECON | [address] | | | | | [place], [place] | | | | | [address] | | + + + + + Care Team Providers + +------+ + | Care Assistant Director Of Public Works Name | Role | Phone | + +------+ + PCP | Unavailable | + +------+ + Encounter Details +--------+ + + + + | Date | Type | Department | Care Team | Description | +--------+ + + + + | 06/23/ | Results | LAB CORE [address] | [place], Faculty | | | 1997 | Only | [address] | [phone] | | | | | [place] | | | | | | [address] | | | | | | [phone] | | | +--------+ + + + [...] | + + + + + | [facility] | [address] | [place] [address] | | | PATHOLOGY | [address] | | | + + + + + documented in this encounter Visit Diagnoses Not on filedocumented in this encounter"
--- OUTSIDE RECORDS SUMMARY | ~2019-08-25 | XMS | Encounter Summary ---
Demographics + + + | Address | [address] | | | [place] [address] | + + + | Home Phone | | + + + | Preferred Language | Unknown | + + + | Marital Status | | + + + | Taoism Affiliation | Unknown | + + + | Race | Unknown | + + + | Ethnic Group | Unknown | + + + Author + + + | Author | [facility] | | | and [place] | + + + | Organization | [facility] | | | and [...] Providers + +------+ + | Care Sql Dba Name | Role | Phone | + [...] | | | | | [address] [facility] | | | | | | [place], [place] | | | | | | [address] | | | | | | [phone] | | | +--------+ + + + [...]
--- OUTSIDE RECORDS SUMMARY | ~2019-08-25 | XMS | Clinical Summary ---
Demographics + + + | Address | [address] | | | [place] [address] | + + + | Home Phone | | + + + | Preferred Language | Unknown | + + + | Marital Status | | + + + | Anabaptism Affiliation | Unknown | + + + | Race | Unknown | + + + | Ethnic Group | Unknown | + + + Author + + + | Author | [facility] | | | and [place] | + + + | Organization | [facility] | | | and [...] Team Providers + +------+ + | Care Brush Holder Inspector Name | Role | Phone | + [...] automatically from request for surgery | | [id number] | + + + + + | [...] | | 2019 | Visit | | PASTE PLANT SUPERVISOR | unspecified type | | | | [...] | + + + + | INFLUENZA, [id number], | 04/03/2009 | | | UNSPECIFIED | [...] | | GLOMERULAR FILTRATION | mL/min/1.73m2 | [facility] | | | SAMOAN | RATE,ESTIMATED | | MEDICAL | | | | mL/min/1.11t6Myxw than | | CENTER - | | [...] [address] | [place] | [phone] | | [facility] | | [address] | | | - LABORATORY | | [...] + +--------+ | MEDICARE | MEDICA | [id number] | 03/24/19 | [phone] | | Medica | | | RE | | 07-Pre | 5 | | re | | | PART A | | sent | | | | | | AND B | | | | | | + +--------+ +--------+ + +--------+ | MODA | MODA | [id number] | 05/23/19 | [phone] | [address] | Indemn | | | HEALTH | | 08-Pre | 9 | [address] | ity | | | MDCR | | sent | | [place], | | | | [place] | | | | [place] [address] | | + +--------+ +--------+ + +--------+ [...] | 1930 | [phone] | [place] [address] | | | ruben | | | 6 (Home) | | + +--------+ +--------+ + + Advance Directives + + + + + | Type | Date Recorded | Patient | Explanation | | | | Resin Painter | | + + + + + | Power of | | | | | Supervisor Toy Parts Former | | | | + + + + + | Advance | | | | | Directive | | | | + + + + +
--- OUTSIDE RECORDS SUMMARY | ~2019-08-25 | XMS | Clinical Summary ---
Demographics + + + | Address | [address] | | | [place] [address] | + + + | Home Phone | | + + + | Preferred Language | Unknown | + + + | Marital Status | | + + + | Sabianism Affiliation | Unknown | + + + | Race | Unknown | + + + | Ethnic Group | Unknown | + + + Author + + + | Author | [facility] | | | and [place] | + + + | Organization | [facility] | [...] Team Providers + +------+ + | Care Photography Manager Name | Role | Phone | [...] automatically from request for surgery | | [id number] | + + + + + | [...] | | 2019 | Visit | | GROUND SUPPORT EQUIPMENT MECHANIC | unspecified type | | | | [...] | + + + + | INFLUENZA, [id number], | 04/03/2009 | | | UNSPECIFIED | [...] | | GLOMERULAR FILTRATION | mL/min/1.73m2 | [facility] | | | FRENCH | RATE,ESTIMATED | | MEDICAL | | | | mL/min/1.32n0Frgq than | | CENTER - | | [...] [address] | [place] | [phone] | | [facility] | | [address] | | | - LABORATORY | | [...] + +--------+ | MEDICARE | MEDICA | [id number] | 03/24/19 | [phone] | | Medica | | | RE | | 07-Pre | 5 | | re | | | PART A | | sent | | | | | | AND B | | | | | | + +--------+ +--------+ + +--------+ | MODA | MODA | [id number] | 05/23/19 | [phone] | [address] | Indemn | | | HEALTH | | 08-Pre | 9 | [address] | ity | | | MDCR | | sent | | [place], | | | | [place] | | | | [place] [address] | | + +--------+ +--------+ + +--------+ [...] | 1930 | [phone] | [place] [address] | | | ruben | | | 6 (Home) | | + +--------+ +--------+ + + Advance Directives + + + + + | Type | Date Recorded | Patient | Explanation | | | | Siphon Operator | | + + + + + | Power of | | | | | Sand Mixer | | | | + + + + + | Advance | | | | | Directive | | | | + + + + +
--- OUTSIDE RECORDS SUMMARY | ~2019-08-25 | XMS | Encounter Summary ---
Demographics + + + | Address | [address] | | | [place] [address] | + + + | Home Phone | | + + + | Preferred Language | Unknown | + + + | Marital Status | | + + + | Spiritism Affiliation | NON | + + + | Race | White | + + + | Ethnic Group | Not or | + + + Author + + + | Author | [facility] | + + + | Organization | [facility] | + + + | Address | Unknown | + + + | Phone | Unavailable | + + + Support + + + + + | Name | Relationship | Address | Phone | + + + + + | Lidia Lee | ECON | [address] | | | | | [place], [place] | | | | | [address] | | + + + + + Care Team Providers + +------+ + | Care Grader Patrol Name | Role | Phone | + +------+ + PCP | Unavailable | + +------+ + Encounter Details +--------+ + + + + | Date | Type | Department | Care Team | Description | +--------+ + + + + | 08/03/ | Procedure - | [facility] | Record, Operation | Operative Report | | 1997 | | [facility] [address] | | | | | Transcribed | [address] | | | | | | Mailcode: [facility] | | | | | | [facility] | | | | | | [facility], [address] | | | | | | [place], [place] | | | | | | [address] | | | | | | [phone] | | | +--------+ + + + [...] | + +--------+ + + + | OPERATION RECORD | | 08/03/1997 | | Results for this | | | | 12:00 AM | | procedure are in the | | | | PDT | | results section. | + +--------+ + + + documented in this encounter Results OPERATION RECORD (08/03/1997 12:00 AM PDT) + + | Procedure Note | + + | 08/03/1997 12:00 AM PDT [place] | | [facility] | | [address], [place] [address] | | [facility] | | | | OPERATION RECORD | | | | Med Rec No.: [id number] Date: 08/03/97 | | | | Name: Jose G Lee | | | | | | ATTENDING SURGEON: | | Quoc Gonzalez M.D., P.C[facility] | | Chief, Urologic Oncology | | Impress Associate, Surgery | | PRODUCTION CONTROL PEGBOARD CLERK(S): | | Brent Gonzalez M.D. | | Resident, Urology | | PREOPERATIVE DIAGNOSIS: Stage T2b adenocarcinoma of the prostate. | | | | POSTOPERATIVE DIAGNOSIS(ES): The same. | | | | OPERATION(S) PERFORMED: 1. Bilateral pelvic lymph node dissection. | | 2. Radical retropubic prostatectomy. | | | | ANESTHESIA: General. | | | | SPECIMEN(S) REMOVED: 1. Right and left pelvic lymph nodes. | | 2. Prostate and seminal vesicles. | | | | INDICATIONS: This is a 67-year-old man who was diagnosed | | with [place] [facility]'s 3+/4 adenocarcinoma of the | | prostate in five of | | six sections of biopsies. He was diagnosed based on a nodule felt on rectal | | examination, as well as a PSA of approximate 20. Repeat biopsies of seminal | | vesicles revealed no evidence of extra prostatic disease. He was counseled | | regarding his options and elected surgery. He was brought to the Operating | | Room now for a radical prostatectomy. | | | | FINDINGS: Bilateral pelvic lymph node dissections were | | performed, and no significant adenopathy was | | encountered. Frozen | | sections were performed by the pathologist, and no evidence of metastatic | | tumor was seen. | | | | The prostate had no obvious extra prostatic disease or obvious extracapsular | | extension. No nerve sparing procedure was attempted. The bladder neck was | | spared. Estimated blood loss was 450 ml. Total operative time was | | approximately three hours. | | | | PROCEDURE: The patient was taken to the Operating Room, | | identified, and general anesthesia induced. | | He was placed in the | | supine position and his abdomen and genitalia prepped and draped in the | | usual sterile fashion. An 18 Samoan Bolden catheter was placed | | transurethrally into the bladder. A midline incision was made, extending | | from just below the umbilicus down to the level of the pubis, carried down | | through the subcutaneous tissues, and the fascia was incised in the midline. | | The retropubic space was bluntly developed, exposing the anterior wall to | | bladder, the prostate, and external iliac vessels. A self-retaining | | retractor was then placed and, beginning with the left side, bilateral | | pelvic lymph node dissections were performed. Margins of lymph node | | dissection included the anterior border of the external iliac vein | | anteriorly, the obturator nerve posteriorly, the bifurcation of the iliac | | vessels superiorly, and Elbert's ligament inferiorly. All lymphatic tissue | | within these borders was removed, and hemoclips were placed across all | | lymphatic vessels prior to dividing them. Once the two bilateral lymph node | | dissections were performed, the self-retaining retractor was repositioned | | and the fat overlying the anterior portion of the prostate was excised, | | using electrocautery. This exposed the endopelvic fascia. | | | | Once frozen sections were completed and they were read as having no evidence | | of metastatic disease, the endopelvic fascia was opened bilaterally, using | | electrocautery. The levator ani muscles were then bluntly pushed laterally | | off the lateral aspect of the prostate. The dorsal vein complex, including | | the lateral edge of the incised endopelvic fascia, was then gathered in a | | pair of Shwetha clamps and ligated proximally and distally with 0 chromic. | | The dorsal vein was then divided and sharp dissection was used to dissect | | the underlying apex of the prostate off of the dorsal vein complex. There | | was some bleeding encountered from the dorsal vein complex at this point, | | and it was oversewn with a 3-0 Biosin suture. The anterior wall of the | | urethra was then divided and the Bolden catheter was brought up through the | | defect of the anterior wall of the urethra, clamped, and divided. It was | | left in the bladder to use as a retractor through the remainder of the case. | | The posterior wall of the urethra was also sharply divided and the lateral | | pillars on either side of the urethra were clipped and then divided. The | | lateral pedicles to the prostate were then divided, with hemoclips being in | | place across them, near the apex, and 0 silk sutures near the base. The 0 | | silk sutures were placed across the main pedicle of the prostate and tied | | prior to dividing it. This allowed exposure of the lateral aspect of the | | seminal vesicles on both sides, and an umbilical tape was passed between the | | seminal vessels and the bladder neck. The bladder neck was then dissected | | off the prostate, using electrocautery. There was a small aspect of median | | lobe prostate tissue, which was dissected out of the posterior bladder neck. | | The seminal vesicles were then dissected free of surrounding tissues, using | | hemoclips to clip all vessels, and the ampullae of the vas were divided | | after placing large hemoclips across them on both sides. The specimen was | | then removed from the field. The epithelium of the bladder neck was | | advanced, using a series of interrupted 3-0 chromic. The field was | | inspected and no obvious bleeding was noted. A was placed | | | | into the urethra and a series of anastomotic sutures were placed in the | | urethral stump at 2 o'clock, 4 o'clock, 6 o'clock, 8 o'clock, and 10 o'clock | | positions. These were 0 chromic sutures. Sutures were then placed in | | corresponding positions on the bladder neck, and a #20 Samoan Bolden catheter | | was placed through the urethra and into the bladder. | | The table was then flattened and the bladder neck brought into approximation | | with the urethral stump and the sutures tied into position. The wound as | | irrigated. A 10 mm flat Kwadwo-Last drain was placed adjacent to the | | anastomosis and brought out through a separate stab wound to the left of the | | incision. It was secured to the skin with a 2-0 nylon. The fascia was closed | | with a running #1 Biosin, the subcutaneous tissue closed with a running 3-0 | | Vicryl, and the skin closed with a running 4-0 Vicryl subcuticular stitch. | | Sterile dressings were applied. The patient tolerated the procedure well, | | was extubated, and returned to the Post Anesthesia Care Unit in stable | | condition. | | | | Dr. Gonzalez was present and actively participated in the entire procedure. | | | | | | | | Brent Gonzalez M.D. | | Resident, Urology | | Quoc Gonzalez M.D., P.C[facility] | | Chief, Urologic Oncology | | Impress Associate, Surgery | | TMW/[email or web address] | | | | A | | | | | + + documented in this encounter Visit Diagnoses Not on filedocumented in this encounter"
--- OUTSIDE RECORDS SUMMARY | ~2019-08-25 | XMS | Encounter Summary ---
Demographics + + + | Address | [address] | | | [place] [address] | + + + | Home Phone | | + + + | Preferred Language | Unknown | + + + | Marital Status | | + + + | Amish Affiliation | Unknown | + + + | Race | Unknown | + + + | Ethnic Group | Unknown | + + + Author + + + | Author | [facility] | | | and [place] | + + + | Organization | [facility] | | [...] Team Providers + +------+ + | Care Election Supervisor Name | Role | Phone | + +------+ + | Immanuel Oliveros MD | PCP | | + +------+ + Reason for Visit + + + | Reason | Comments | + + + | Anticoagulation | | + + + Encounter Details +--------+ + + + + | Date | Type | Department | Care Team | Description | +--------+ + + + + | 06/13/ | Off-Site | [facility] | Addison Jo, | Atrial fibrillation, | | 2020 | Visit | CLINIC [address] | FLOOD CONTROL ENGINEER [address] | unspecified type | | | | Street [place], | [place], [place] | (HCC) (Primary Dx); | | | | [place] [address] | [address] | Monitoring for | | | | [phone] | | long-term | | | | | | anticoagulant use; | | | | | | Non-healing surgical | | | | | | wound, initial | | | | | | encounter | +--------+ + + + + Social [...] + + + + | Weight | - | - | | + + + + + | Height | - | - | | + + + + + | Body Mass Index | - | - | | + + + + + documented in this encounter Progress Notes Addison Jo ARNP - 06/14/2019 6:30 AM [facility] Patient Name: Jose G Lee | Age: 89 y.o. | : 1930 | [id number] | Author: XIOMARA Erickson | Date of Encounter: 06/14/2019 Subjective: HPI: Anticoagulation: Patient here for followup of chronic anticoagulation. Indication: No diagnosis found. Patient's medications, allergies, past medical, surgical, social and family histories were obtained and reviewed as appropriate. ROS: See HPI Objective: There were no vitals taken for this visit. Physical Exam Constitutional: He appears well-developed and well-nourished. Cardiovascular: Normal rate and regular rhythm. Pulmonary/Chest: Effort normal. He has no wheezes. He has no rales. Musculoskeletal: Normal range of motion. General: No tenderness, deformity or edema. Neurological: He is alert. Skin: Skin is warm and dry. Assessment/Plan: There are no diagnoses linked to this encounter. See Anticoagulation Summary above. Continue current warfarin schedule. [id number] Seen also today for non-healing biopsy site on right restorationism. Wound measures 0.7 x 1 x 0.1 cm with dry non-granulating wound bed. Has excessive tissue dryness with scarring. Wound c are order changed to applying hydrogel twice a day with no dressing to prevent further dryin g out of the wound bed and irritation. Electronically signed by: XIOMARA Erickson 06/14/2019 at 7:37 AM Portions of this chart may have been created with epacube voice recognition software. Occasi onal wrong-word or sound-alike substitutions may have occurred due to the inherent quiñones itations of voice recognition software. Please read the chart carefully and recognize, using context, where these substitutions have occurred. documented in this encounter Plan of Treatment [...] results section. | | | | | ([facility]) Monitoring | | | | | | for long-term | | | | | | anticoagulant use | | + +--------+ + + + documented in this encounter Results POCT PT/INR fingerstick (06/14/2019 6:50 AM PDT) [...] + + | Blood | + + documented in this encounter Visit Diagnoses + + | Diagnosis | + + | Atrial fibrillation, unspecified type (HCC) - Primary | + + | Monitoring for long-term anticoagulant use Encounter for long-term (current) use of | | anticoagulants | + + | Non-healing surgical wound, initial encounter | + + documented in this encounter"
--- OUTSIDE RECORDS SUMMARY | ~2019-08-25 | XMS | Encounter Summary ---
Demographics + + + | Address | [address] | | | [place] [address] | + + + | Home Phone | | + + + | Preferred Language | Unknown | + + + | Marital Status | | + + + | Yazidi Affiliation | Unknown | + + + | Race | Unknown | + + + | Ethnic Group | Unknown | + + + Author + + + | Author | [facility] | | | and [place] | + + + | Organization | [facility] | | | [...] Team Providers + +------+ + | Care Male Infertility Specialist Name | Role | Phone | + +------+ + PCP | Unavailable | + +------+ + Reason for Visit + + + | Reason | Comments | + + + | Medication Refill | | + + + Encounter Details +--------+--------+ + + + | Date | Type | Department | Care Team | Description | +--------+--------+ + + + | 10/ | Refill | [facility] | Julian Clement PA | Medication Refill | | 2011 | | SLEEP DISORDER [address] | [address] | | | | | [address] [place] | ALETHEAMarnie GORDON [place] | | | | | [place] [address] | [address] | | | | | [phone] | | | +--------+--------+ + + + Social History + +-------+ [...] + | Diagnosis | + + | Obstructive sleep apnea (adult) (pediatric) - Primary | + + documented in this encounter"
--- OUTSIDE RECORDS SUMMARY | ~2019-08-25 | XMS | Encounter Summary ---
Demographics + + + | Address | [address] | | | [place] [address] | + + + | Home Phone | | + + + | Preferred Language | Unknown | + + + | Marital Status | | + + + | Yazdanism Affiliation | NON | + + + | Race | White | + + + | Ethnic Group | Not or | + + + Author + + + | Author | [facility] | + + + | Organization | [facility] | + + + | Address | Unknown | + + + | Phone | Unavailable | + + + Support + + + + + | Name | Relationship | Address | Phone | + + + + + | Lidia Lee | ECON | [address] | | | | | [place], [place] | | | | | [address] | | + + + + + Care Team Providers + +------+ + | Care Automatic Corn Grinder Operator Name | Role | Phone | [...] Clinic | | | | | | [facility] [address] | | | | | | [place], [place] | | | | | | [address] | | | | | | [phone] | | | +--------+ + + + [...] as of this encounter Progress Notes Interface, Hospice Volunteer In - 04/18/2006 3:12 AM PST CLINIC [...] Quoc Gonzalez M.D., P.C. Chief, Urologic Oncology Bit Shaver, Surgery /[facility] documented in this encounter Plan of Treatment Not on filedocumented as of this encounter Visit Diagnoses Not on filedocumented in this encounter"
--- OUTSIDE RECORDS SUMMARY | ~2019-08-25 | XMS | Encounter Summary ---
Demographics + + + | Address | [address] | | | [place] [address] | + + + | Home Phone | | + + + | Preferred Language | Unknown | + + + | Marital Status | | + + + | Mormon Affiliation | NON | + + + | Race | White | + + + | Ethnic Group | Not or | + + + Author + + + | Author | [facility] | + + + | Organization | [facility] | + + + | Address | Unknown | + + + | Phone | Unavailable | + + + Support + + + + + | Name | Relationship | Address | Phone | + + + + + | Lidia Lee | ECON | [address] | | | | | [place], [place] | | | | | [address] | | + + + + + Care Team Providers + +------+ + | Care Car Head Liner Installer Name | Role | Phone | + +------+ + PCP | Unavailable | + +------+ + Encounter Details +--------+ + + + + | Date | Type | Department | Care Team | Description | +--------+ + + + + | 06/23/ | Results | LAB CORE [address] | Mayela, Faculty | | | 1997 | Only | [address] | [phone] | | | | | [place] | | | | | | [address] | | | | | | [phone] | | | +--------+ + + + [...] | + + + + + | [facility] | [address] | [place] [address] | | | PATHOLOGY | [address] | | | + + + + + documented in this encounter Visit Diagnoses Not on filedocumented in this encounter"
--- OUTSIDE RECORDS SUMMARY | ~2019-08-25 | XMS | Encounter Summary ---
Demographics + + + | Address | [address] | | | [place] [address] | + + + | Home Phone | | + + + | Preferred Language | Unknown | + + + | Marital Status | | + + + | Yarsanism Affiliation | Unknown | + + + | Race | Unknown | + + + | Ethnic Group | Unknown | + + + Author + + + | Author | [facility] | | | and [place] | + + + | Organization | [facility] | | | [...] Team Providers + +------+ + | Care Computerized Machine Fabric Cutter Name | Role | Phone | + [...] | SLEEP DISORDER [address] | [address] | Dx) | | | | [address] [place] | [place] | | | | | [place] [address] | [address] | | | | | [phone] | | | +--------+---------+ + + + [...] mask obtained from: [facility] [place] pressure: 12 cm Nights using CPAP: 254/254 [...] appr opiate paperwork. Thirty minutes were spent obqx-mg-fiyo, with the majority of time spent i n counseling. Julian Clement PA-C cc: Immanuel Oliveros MD Lia Pryor, Master of Arts - 11/25/2013 10:32 AM PDTFormatting of this note might be different from the origina l. 11/25/13 [address] [place] Depression Inventory-II Depression Score 8 - Minimal depression Insomnia Severity Index Insomnia Severity Index 2 [place] Sleepiness Scale Sitting and reading 1 Watching [...]
--- OUTSIDE RECORDS SUMMARY | ~2019-08-25 | XMS | Encounter Summary ---
Demographics + + + | Address | [address] | | | [place] [address] | + + + | Home Phone | | + + + | Preferred Language | Unknown | + + + | Marital Status | | + + + | Pentecostalism Affiliation | Unknown | + + + [...] Team Providers + +------+ + | Care General Service Officer Name | Role | Phone | [...] [address] | | | | | St [place], [place] | [address] [facility] | | | | | [address] | [place] [address] | | | | | [phone] | [phone] | | | | | | | [...]
--- OUTSIDE RECORDS SUMMARY | ~2019-08-25 | XMS | Encounter Summary ---
Demographics + + + | Address | [address] | | | [place] [address] | + + + | Home Phone | | + + + | Preferred Language | Unknown | + + + | Marital Status | | + + + | Cheondoism Affiliation | Unknown | + + + | Race | Unknown | + + + | Ethnic Group | Unknown | + + + Author + + + | Author | [facility] | | | and [place] | + + + | Organization | [facility] | | | [...] Team Providers + +------+ + | Care Signing Teacher Name | Role | Phone | + [...] Telephone | [facility] | Cody Mcdaams | Coordination Of Care | | 2020 | | SURGERY [address] | MD Miguel [address] | | | | | [place], [place] | [address] [facility] | | | | | [address] | [place] [address] | | | | | [phone] | [phone] | | | | | | | [...]
--- OUTSIDE RECORDS SUMMARY | ~2019-08-25 | XMS | Encounter Summary ---
Demographics + + + | Address | [address] | | | [place] [address] | + + + | Home Phone | | + + + | Preferred Language | Unknown | + + + | Marital Status | | + + + | Christian Affiliation | Unknown | + + + | Race | Unknown | + + + | Ethnic Group | Unknown | + + + Author + + + | Author | [facility] | | | and [place] | + + + | Organization | 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
--- OUTSIDE RECORDS SUMMARY | ~2019-08-25 | XMS | Encounter Summary ---
Demographics + + + | Address | [address] | | | [place] [address] | + + + | Home Phone | | + + + | Preferred Language | Unknown | + + + | Marital Status | | + + + | Jainism Affiliation | NON | + + + | Race | White | + + + | Ethnic Group | Not or | + + + Author + + + | Author | [facility] | + + + | Organization | [facility] | + + + | Address | Unknown | + + + | Phone | Unavailable | + + + Support + + + + + | Name | Relationship | Address | Phone | + + + + + | Lidia Lee | ECON | [address] | | | | | [place], [place] | | | | | [address] | | + + + + + Care Team Providers + +------+ + | Care Director Payment Name | Role | Phone | + [...] as of this encounter Progress Notes Interface, Crester In - 04/08/2006 5:02 AM [facility] DATE: 10/06/97 UROLOGY/ONCOLOGY CLINIC Mr. [...] Urology DAVID/ariel cc: SHAVONNE GILES MD [address] [place] [address] documented in this encounter Plan of Treatment Not on filedocumented as of this encounter Visit Diagnoses Not on filedocumented in this encounter"
--- OUTSIDE RECORDS SUMMARY | ~2019-08-25 | XMS | Encounter Summary ---
Demographics + + + | Address | [address] | | | [place] [address] | + + + | Home Phone | | + + + | Preferred Language | Unknown | + + + | Marital Status | | + + + | Orthodoxy Affiliation | Unknown | + + + | Race | Unknown | + + + | Ethnic Group | Unknown | + + + Author + + + | Author | [facility] | | | and [place] | + + + | Organization | [facility] | | [...] Team Providers + +------+ + | Care Pcat Instructor Name | Role | Phone | [...] | | | | | [address] [facility] | | | | | | [place], [place] | | | | | | [address] | | | | | | [phone] | | | +--------+ + + + [...]
--- OUTSIDE RECORDS SUMMARY | ~2019-08-25 | XMS | Encounter Summary ---
Demographics + + + | Address | [address] | | | [place] [address] | + + + | Home Phone | | + + + | Preferred Language | Unknown | + + + | Marital Status | | + + + | Mormonism Affiliation | Unknown | + + + | Race | Unknown | + + + | Ethnic Group | Unknown | + + + Author + + + | Author | [facility] | | | and [place] | + + + | Organization | [facility] | | [...] Team Providers + +------+ + | Care Porcelain Enamel Installer Name | Role | Phone | + +------+ + | Immanuel Oliveros MD | PCP | | + +------+ + Encounter Details +--------+ + + + + | Date | Type | Department | Care Team | Description | +--------+ + + + + | 06/13/ | Lab 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 | | | [facility] | RATE,ESTIMATED | | MEDICAL | | | | mL/min/1.37j1Ujwu than | | CENTER - | | [...] [address] | [place] | [phone] | | [facility] | | [address] | | | - LABORATORY | | [...]
--- OUTSIDE RECORDS SUMMARY | ~2019-08-25 | XMS | Encounter Summary ---
Demographics + + + | Address | [address] | | | [place] [address] | + + + | Home Phone | | + + + | Preferred Language | Unknown | + + + | Marital Status | | + + + | Moravian Affiliation | Unknown | + + + | Race | Unknown | + + + | Ethnic Group | Unknown | + + + Author + + + | Author | [facility] | | | and [place] | + + + | Organization | [facility] | | | [...] Team Providers + +------+ + | Care Awning Hanger Supervisor Name | Role | Phone | [...] | SLEEP DISORDER [address] | [address] | | | | | [address] [place] | ALETHEAMarnie G[place]ON [place] | | | | | [place] [address] | [address] | | | | | [phone] | | | +--------+--------+ + + + [...]
--- OUTSIDE RECORDS SUMMARY | ~2019-08-25 | XMS | Encounter Summary ---
Demographics + + + | Address | [address] | | | [place] [address] | + + + | Home Phone | | + + + | Preferred Language | Unknown | + + + | Marital Status | | + + + | Mu-Ism Affiliation | NON | + + + | Race | White | + + + | Ethnic Group | Not or | + + + Author + + + | Author | [facility] | + + + | Organization | [facility] | + + + | Address | Unknown | + + + | Phone | Unavailable | + + + Support + + + + + | Name | Relationship | Address | Phone | + + + + + | Lidia Lee | ECON | [address] | | | | | [place], [place] | | | | | [address] | | + + + + + Care Team Providers + +------+ + | Care Patternmaker Metal Bench Name | Role | Phone | + +------+ + PCP | Unavailable | + +------+ + Encounter Details +--------+ + + + + | Date | Type | Department | Care Team | Description | +--------+ + + + + | 05/15/ | Documentati | Health Information | Other, Faculty | | | 2019 | on | Services [address] | [phone] | | | | | [address] | | | | | | Mailcode: [id number] | | | | | | [facility] | | | | | | [place], [place] | | | | | | [address] | | | | | | [phone] | | | +--------+ + + + [...]
--- OUTSIDE RECORDS SUMMARY | ~2019-08-25 | XMS | Encounter Summary ---
Demographics + + + | Address | [address] | | | [place] [address] | + + + | Home Phone | | + + + | Preferred Language | Unknown | + + + | Marital Status | | + + + | Faith Affiliation | Unknown | + + + | Race | Unknown | + + + | Ethnic Group | Unknown | + + + Author + + + | Author | [facility] | | | and [place] | + + + | Organization | [facility] | | | and [...] Team Providers + +------+ + | Care Security Operations Center Analyst Name | Role | Phone | + [...] | Visit | CLINIC [address] | ASSOCIATE PROFESSOR OF LAW [address] | unspecified type | | | | [address] [place], | [place], [place] | (HCC) (Primary Dx); | | | | [place] [address] | [address] | Monitoring for | | | | [phone] | | long-term | | | | [...] Addison Jo ARNP - 06/14/2019 6:30 AM [facility] Patient Name: Jose G Lee | Age: 89 y.o. | : 1930 | [address] | Author: XIOMARA Erickson | Date of [...] Anticoagulation Summary above. Continue current warfarin schedule. [id number] Seen also today for non-healing biopsy site on right anabaptism. Wound measures 0.7 x 1 x 0.1 cm with dry non-granulating wound bed. Has excessive tissue dryness with scarring. Wound c are order changed to applying hydrogel twice a day with no dressing to prevent further dryin g out of the wound bed and irritation. Electronically signed by: XIOMARA Erickson 06/14/2019 at 7:37 AM Portions of this chart may have been created with [employer] voice recognition software. Occasi onal wrong-word or [...] results section. | | | | | ([facility]) Monitoring | | | | | | [...]
--- OUTSIDE RECORDS SUMMARY | ~2019-08-25 | XMS | Encounter Summary ---
Demographics + + + | Address | [address] | | | [place] [address] | + + + | Home Phone | | + + + | Preferred Language | Unknown | + + + | Marital Status | | + + + | Sikhism Affiliation | Unknown | + + + | Race | Unknown | + + + | Ethnic Group | Unknown | + + + Author + + + | Author | [facility] | | | and [place] | + + + | Organization | [facility] | | | and [...] Team Providers + +------+ + | Care Biophysics Professor Name | Role | Phone | + +------+ + PCP | Unavailable | + +------+ + Encounter Details +--------+ + + + + | Date | Type | Department | Care Team | Description | +--------+ + + + + | 12/12/ | Hospital | [facility] | | | | 1998 | Encounter | MED CTR SLEEP | | | | | | CENTER [address] | | | | | | [place] | | | | | | [address] | | | | | | [phone] | | | +--------+ + + + [...]
--- OUTSIDE RECORDS SUMMARY | ~2019-08-25 | XMS | Encounter Summary ---
Demographics + + + | Address | [address] | | | [place] [address] | + + + | Home Phone | | + + + | Preferred Language | Unknown | + + + | Marital Status | | + + + | Orthodox Affiliation | NON | + + + | Race | White | + + + | Ethnic Group | Not or | + + + Author + + + | Author | [facility] | + + + | Organization | [facility] | + + + | Address | Unknown | + + + | Phone | Unavailable | + + + Support + + + + + | Name | Relationship | Address | Phone | + + + + + | Lidia Lee | ECON | [address] | | | | | [place], [place] | | | | | [address] | | + + + + + Care Team Providers + +------+ + | Care Trackmobile Operator Name | Role | Phone | [...] | Only | [address] | [phone] | | | | | [place] | | | | | | [address] | | | | | | [phone] | | | +--------+ + + + [...] | | | | | and a floor representative | | | | | | [...] complete | | | | | | floor representative section | | | | | | of prostatic [id number], | | | | | | right [...] | | | | | | | [place] | | | | | | [place] | | | | | | | [...] [facility] | [address] | [place] [address] | | | PATHOLOGY | [address] | | | + + + + + documented in this encounter Visit Diagnoses Not on filedocumented in this encounter"
--- OUTSIDE RECORDS SUMMARY | ~2019-08-25 | XMS | Encounter Summary ---
Demographics + + + | Address | [address] | | | [place] [address] | + + + | Home Phone | | + + + | Preferred Language | Unknown | + + + | Marital Status | | + + + | Sabianist Affiliation | Unknown | + + + | Race | Unknown | + + + | Ethnic Group | Unknown | + + + Author + + + | Author | [facility] | | | and [place] | + + + | Organization | [facility] | | | [...] Team Providers + +------+ + | Care Electric Milkers Installer Name | Role | Phone | + +------+ + | Immanuel Oliveros MD | PCP | | + +------+ + Reason for Visit + + + | Reason | Comments | + + + | Follow-up | | + + + Encounter Details +--------+ + + + + | Date | Type | Department | Care Team | Description | +--------+ + + + + | 01/03/ | Telephone | [facility] | Julian Clement PA | Follow-up | | 2016 | | SLEEP DISORDER [address] | [address] | | | | | [address] [place] | [place] | | | | | [place] [address] | [address] | | | | | [phone] | | | +--------+ + + + [...]
--- OUTSIDE RECORDS SUMMARY | ~2019-08-25 | XMS | Encounter Summary ---
Demographics + + + | Address | [address] | | | [place] [address] | + + + | Home Phone | | + + + | Preferred Language | Unknown | + + + | Marital Status | | + + + | Advent Affiliation | NON | + + + [...] [place], [place] | | | | | [address] | | + + + + + Care Team Providers + +------+ + | Care Licensed Psychologist Manager Name | Role | Phone | + +------+ + PCP | Unavailable | + +------+ + Encounter Details +--------+ + + + + | Date | Type | Department | Care Team | Description | +--------+ + + + + | 05/05/ | Results | LAB CORE [address] | Mayela, Faculty | | | 1997 | Only | [address] | [phone] | | | | | [place] | | | | | | [address] | | | | | | [phone] | | | +--------+ + + + [...] + | SURGICAL PATHOLOGY | Routin | 07/26/1997 | | Results for this | | | e | | | procedure are in the | | | | | | results section. | + +--------+ + + + documented in this encounter Results SURGICAL PATHOLOGY (07/26/1997) + + + + + + | Component | Value | Ref Range | Performed | Pathologist | | | | | At | Signature | + + + + + + | SURGICAL | SOURCE OF SPECIMEN: SEE | | [facility] | | | PATHOLOGY | RESULTS | | DEPARTMENT | | | | Preliminary | | OF | | | | History:GROSS | | PATHOLOGY | | | | DESCRIPTIONReceived from | | | | | | [place] | | | | | | [place], [place], are six | | | | | | H&E-stainedslides | | | | | | labeled with the | | | | | | patient's name | | | | | | "Rosa". The | | | | | | correspondingPathology | | | | | | report is labeled with | | | | | | the patient's name and | | | | | | dated 07/20/97. | | | | | | MICROSCOPIC | | | | | | DESCRIPTIONProstate, | | | | | | Needle Core Biopsies, | | | | | | A-F: Low power | | | | | | demonstrates foci | | | | | | ofsmall, single glands | | | | | | compressed together with | | | | | | areas of cribriforming | | | | | | andareas of infiltrating | | | | | | fused glands. On high | | | | | | power, the malignant | | | | | | cellshave an increased | | | | | | nuclear to cytoplasmic | | | | | | ratio, prominent | | | | | | nucleoli,mildly | | | | | | irregular nuclear | | | | | | membranes, and | | | | | | pleomorphism. There | | | | | | areeosinophilic | | | | | | crystalloids in some of | | | | | | the malignant glands. In | | | | | | slide E,there is | | | | | | infiltration of a nerve | | | | | | by malignant glands. The | | | | | | remainder ofthe tissue | | | | | | demonstrates mild gland | | | | | | atrophy. 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, | | | | | | JARROD'S GRADE 3+4/5+5, | | | | | | COMPRISING 60% OF | | | | | | BIOPSYPROSTATE, LEFT | | | | | | APEX, NEEDLE CORE BIOPSY | | | | | | (C): BENIGN PROSTATE | | | | | | TISSUEPROSTATE, RIGHT | | | | | | BASE, NEEDLE CORE BIOPSY | | | | | | (D): PROSTATE | | | | | | ADENOCARCINOMA, | | | | | | JARROD'S GRADE 3+4/5+5, | | | | | | COMPRISING 50% OF | | | | | | BIOPSYPROSTATE, RIGHT | | | | | | MID, NEEDLE CORE BIOPSY | | | | | | (E): PROSTATE | | | | | | ADENOCARCINOMA, | | | | | | JARROD'S GRADE 3+4/5+5, | | | | | | COMPRISING 10% OF | | | | | | BIOPSY, INFILTRATING | | | | | | NERVEPROSTATE, RIGHT | | | | | | APEX, NEEDLE CORE BIOPSY | | | | | | (F): BENIGN PROSTATE | | | | | | TISSUE(outside slides) | | | | | | Case reviewed by: | | | | | | Belinda Andre M.D.Case | | | | | | staffed by: Nir | | | | | | Faith | | | | | | LiliT:07/27/97/fSix slides | | | | | | are returned with the | | | | | | report. My | | | | | | [...] | + + + + + | [facility] | [address] | [place] [address] | | | PATHOLOGY | ALHAJI TREVINO | | | + + + + + documented in this encounter Visit Diagnoses Not on filedocumented in this encounter
--- OUTSIDE RECORDS SUMMARY | ~2019-08-25 | XMS | Encounter Summary ---
Demographics + + + | Address | [address] | | | [place] [address] | + + + | Home Phone | | + + + | Preferred Language | Unknown | + + + | Marital Status | | + + + | Congregational Affiliation | NON | + + + | Race | White | + + + | Ethnic Group | Not or | + + + Author + + + | Author | [facility] | + + + | Organization | [facility] | + + + | Address | Unknown | + + + | Phone | Unavailable | + + + Support + + + + + | Name | Relationship | Address | Phone | + + + + + | Lidia Lee | ECON | [address] | | | | | [place], [place] | | | | | [address] | | + + + + + Care Team Providers + +------+ + | Care Bottling Line Attendant Name | Role | Phone | + +------+ + PCP | Unavailable | + +------+ + Encounter Details +--------+ + + + + | Date | Type | Department | Care Team | Description | +--------+ + + + + | 08/03/ | Procedure - | Digestive Health | Record, Operation | Operative Report | | 1997 | | [place] at [facility] [address] | | | | | Transcribed | [address] | | | | | | Mailcode: [place] | | | | | | for Health and | | | | | | Healing, [address] | | | | | | [place], [place] | | | | | | [address] | | | | | | [phone] | | | +--------+ + + + [...] + + | 08/03/1997 12:00 AM PDT [place] | | [facility] | | [address], [place] [address] | | [facility] | | | | OPERATION RECORD | | | | Med Rec No.: [id number] Date: 08/03/97 | | | | Name: Jose G Lee | | | | | | ATTENDING SURGEON: | | [facility] | | Chief, Urologic Oncology | | Healthcare Customer Service, Surgery | | SPA ASSISTANT MANAGER(S): | | Brent Gonzalez M.D. | | [...] man who was diagnosed | | with [place]'s 3+/4 adenocarcinoma of the | | prostate [...] | | usual sterile fashion. An 18 Portuguese Bolden catheter was placed | | transurethrally [...] on the bladder neck, and a #20 Portuguese Bolden catheter | | was placed through [...] | | Chief, Urologic Oncology | | Healthcare Customer Service, Surgery | | TMW/richard | | | | A | | | | | + + documented in this encounter Visit Diagnoses Not on filedocumented in this encounter"
--- OUTSIDE RECORDS SUMMARY | ~2019-08-25 | XMS | Encounter Summary ---
Demographics + + + | Address | [address] | | | [place] [address] | + + + | Home Phone | | + + + | Preferred Language | Unknown | + + + | Marital Status | | + + + | Yazidism Affiliation | Unknown | + + + | Race | Unknown | + + + | Ethnic Group | Unknown | + + + Author + + + | Author | [facility] | | | and [place] | + + + | Organization | [facility] | | | [...] Team Providers + +------+ + | Care Manager Meeting Name | Role | Phone | + [...] | SLEEP DISORDER 401 | [address] | | | | | [address] [place] | ALETHEAMarnie GORDON [place] | | | | | [place] [address] | [address] | | | | | [phone] | | | +--------+--------+ + + + [...]
--- OUTSIDE RECORDS SUMMARY | ~2019-08-25 | XMS | Encounter Summary ---
Demographics + + + | Address | [address] | | | [place] [address] | + + + | Home Phone | | + + + | Preferred Language | Unknown | + + + | Marital Status | | + + + | Zoroastrianism Affiliation | Unknown | + + + | Race | Unknown | + + + | Ethnic Group | Unknown | + + + Author + + + | Author | [facility] | | | and [place] | + + + | Organization | [facility] | | | [...] Team Providers + +------+ + | Care Painter Structural Steel Name | Role | Phone | + [...] [address] | | | | | [address] [place] | [address] [facility] | | | | | [address] | [place] [address] | | | | | [phone] | [phone] | | | | | | | [...]
--- OUTSIDE RECORDS SUMMARY | ~2019-08-25 | XMS | Encounter Summary ---
Demographics + + + | Address | [address] | | | [place] [address] | + + + | Home Phone [...] + + + | Author | [facility] | + + + | Organization | [facility] | + + + | Address | Unknown | + + + | Phone | Unavailable | + + + Support + + + + + | Name | Relationship | Address | Phone | + + + + + | Lidia Lee | ECON | [address] | | | | | [place], [place] | | | | | [address] | | + + + + + Care Team Providers + +------+ + | Care Motorized Squad Lieutenant Name | Role | Phone | + +------+ + PCP | Unavailable | + +------+ + Encounter Details +--------+ + + + + | Date | Type | Department | Care Team | Description | +--------+ + + + + | 08/02/ | Results | Registration [address] | | | | 1997 | Only | [address] | | | | | | [address] Mailcode: [id number] | | | | | | [place], [place] | | | | | | [address] | | | | | | [phone] | | | +--------+ + + + [...] | + +--------+ + + + | TRANSFUSION MEDICINE | Routin | 08/03/1997 | | Results for this | | TESTS | e | 8:22 AM | | procedure are in the | | | | PDT | | results section. | + +--------+ + + + | CHEMISTRY TESTS 4 | Routin | 08/02/1997 | | Results for this | | | e | 5:15 PM | | procedure are in the | | | | PDT | | results section. | + +--------+ + + + | CBC TESTS 2 | Routin | 08/02/1997 | | Results for this | | | e | 5:15 PM | | procedure are in the | | | | PDT | | results section. | + +--------+ + + + | COAGULATION TESTS 2 | Routin | 08/02/1997 | | Results for this | | | e | 5:15 PM | | procedure are in the | | | | PDT | | results section. | + +--------+ + + + documented in this encounter Results TRANSFUSION MEDICINE TESTS (08/03/1997 8:22 AM PDT) + + + + + + | Component | Value | Ref Range | Performed | Pathologist | | | | | At | Signature | + + + + + + | ABO GROUP | O | | | | + + + + + + | RH TYPE | POS | | | | + + + + + + | ANTIBODY | NEGATIVE | | | | | SCREEN | | | | | + + + + + + + + | Specimen | + + | | + + + + + + + | Performing | Address | City/State/Zipcode | Phone Number | | Organization | | | | + + + + + | [facility] | [address] | [place] [address] | | | PATHOLOGY | [address] | | | + + + + + COAGULATION TESTS 2 (08/02/1997 5:15 PM PDT) + + + + + + | Component | Value | Ref Range | Performed | Pathologist | | | | | At | Signature | + + + + + + | PROTHROMBIN | 11.9 | SECONDS | | | | TIME | | | | | + + + + + + | PROTIME | 1. | SECONDS | | | | RATIO | | | | | + + + + + + | PROTHROMBIN | 1.02 | INR | | | | INR | | | | | + + + + + + | APTT | 28.6 | SECONDS | | | + + + + + + + + | Specimen | + + | | + + + + + + + | Performing | Address | City/State/Zipcode | Phone Number | | Organization | | | | + + + + + | [facility] | [address] | [place] [address] | | | PATHOLOGY | [address] | | | + + + + + CBC TESTS 2 (08/02/1997 5:15 PM PDT) + + + + + + | Component | Value | Ref Range | Performed | Pathologist | | | | | At | Signature | + + + + + + | WHITE CELL | 6. | K/CU MM | | | | COUNT | | | | | + + + + + + | RED CELL | 4.9 | M/CU MM | | | | COUNT | | | | | + + + + + + | HEMOGLOBIN | 14.4 | GM/DL | | | + + + + + + | HEMATOCRIT | 44. | % | | | + + + + + + | MCV | 89.8 | FL | | | + + + + + + | MCH | 29.3 | PG | | | + + + + + + | MCHC | 32.7 (L) | GM/DL | | | + + + + + + | RDW | 13.5 | % | | | + + + + + + | PLATELET | 238. | K/CU MM | | | | COUNT | | | | | + + + + + + | MPV | 8.3 | FL | | | + + + + + + + + | Specimen | + + | | + + + + + + + | Performing | Address | City/State/Zipcode | Phone Number | | Organization | | | | + + + + + | [facility] | [address] | [place] [address] | | | PATHOLOGY | [address] | | | + + + + + CHEMISTRY TESTS 4 (08/02/1997 5:15 PM PDT) + + + + + + | Component | Value | Ref Range | Performed | Pathologist | | | | | At | Signature | + + + + + + | SODIUM, | 141. | mmol/l | | | | PLASMA | | | | | | (LAB) | | | | | + + + + + + | POTASSIUM, | 3.5 | mmol/l | | | | PLASMA | | | | | | (LAB) | | | | | + + + + + + | CHLORIDE, | 108. | mmol/l | | | | PLASMA | | | | | | (LAB) | | | | | + + + + + + | TOTAL CO2, | 26. | mmol/l | | | | PLASMA | | | | | | (LAB) | | | | | + + + + + + | BUN, PLASMA | 14. | mg/dL | | | | (LAB) | | | | | + + + + + + | CREATININE | 1.1 | mg/dL | | | | PLASMA | | | | | | (LAB) | | | | | + + + + + + + + | Specimen | + + | | + + + + + + + | Performing | Address | City/State/Zipcode | Phone Number | | Organization | | | | + + + + + | [facility] | [address] | [place] [address] | | | PATHOLOGY | [address] | | | + + + + + documented in this encounter Visit Diagnoses Not on filedocumented in this encounter"
--- OUTSIDE RECORDS SUMMARY | ~2019-08-25 | XMS | Encounter Summary ---
Demographics + + + | Address | [address] | | | [place] [address] | + + + | Home Phone | | + + + | Preferred Language | Unknown | + + + | Marital Status | | + + + | Jew Affiliation | NON | + + + | Race | White | + + + | Ethnic Group | Not or | + + + Author + + + | Author | [facility] | + + + | Organization | [facility] | + + + | Address | Unknown | + + + | Phone | Unavailable | + + + Support + + + + + | Name | Relationship | Address | Phone | + + + + + | Lidia Lee | ECON | [address] | | | | | [place], [place] | | | | | [address] | | + + + + + Care Team Providers + +------+ + | Care Lighting Fixture Installer Name | Role | Phone | + +------+ + PCP | Unavailable | + +------+ + Encounter Details +--------+ + + + + | Date | Type | Department | Care Team | Description | +--------+ + + + + | 08/05/ | Discharge | Allergy Clinic at | Summary, Discharge | D/C Summary ODDS | | 1997 | Summary-Tra | [facility] [address] | | | | | nscribed | [address] | | | | | | [address] | | | | | | [facility], 7th floor | | | | | | [place], [place] | | | | | | [address] | | | | | | [phone] | | | +--------+ + + + [...] as of this encounter Discharge Summaries Interface, Traffic Director In - 04/15/2006 3:05 AM PST [address] [address] [facility] MEDICAL SUMMARY OF HOSPITALIZATION Med Rec No.: [id number] Admission Date: 08/03/97 Name: Jose G Lee Discharge Date: 08/05/97 STAFF PHYSICIAN: Quoc Gonzalez M.D[facility] Chief, Urologic Oncology Machine Striper, Surgery PRINCIPAL FINAL DIAGNOSIS: Prostate carcinoma. PRINCIPAL PROCEDURE: Radical retropubic prostatectomy and bilateral pelvic lymph node dissection. 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 He had previously undergone [...] Quoc Gonzalez M.D[facility] P.C[facility] Chief, Urologic Oncology Machine Striper, SurgerySUZYK/rb P cc: ANNEMARIE GILES MD [address] [place] [address] documented in this encounter Plan of Treatment Not on filedocumented as of this encounter Visit Diagnoses Not on filedocumented in this encounter"
--- OUTSIDE RECORDS SUMMARY | ~2019-08-25 | XMS | Encounter Summary ---
Demographics + + + | Address | [address] | | | [place] [address] | + + + | Home Phone | | + + + | Preferred Language | Unknown | + + + | Marital Status | | + + + | Islam Affiliation | NON | + + + [...] [place], [place] | | | | | [address] | | + + + + + Care Team Providers + +------+ + | Care K 9 Police Officer Name | Role | Phone | + +------+ + PCP | Unavailable | + +------+ + Encounter Details +--------+ + + + + | Date | Type | Department | Care Team | Description | +--------+ + + + + | 08/03/ | Procedure - | Digestive Health | Record, Operation | Operative Report | | 1997 | | [place] at [facility] [address] | | | | | Transcribed | [address] | | | | | | Mailcode: [place] | | | | | | for Health and | | | | | | Healing, [address] | | | | | | [place], [place] | | | | | | [address] | | | | | | [phone] | | | +--------+ + + + [...] + + | 08/03/1997 12:00 AM PDT [place] | | [facility] | | [address], [place] [address] | | [facility] | | | | OPERATION RECORD | | | | Med Rec No.: [id number] Date: 08/03/97 | | | | Name: Jose G Lee | | | | | | ATTENDING SURGEON: | | Quoc Gonzalez M.D[facility] P.C[facility] | | Chief, Urologic Oncology | | Price Economist, Surgery | | SCRAPER MEAT(S): | | Brent Gonzalez M.D. | | [...] man who was diagnosed | | with [place]'s 3+/4 adenocarcinoma of the | | prostate [...] | | usual sterile fashion. An 18 Barb[place] Bolden catheter was placed | | transurethrally [...] on the bladder neck, and a #20 [place] Bolden catheter | | was placed through [...] | | Chief, Urologic Oncology | | Price Economist, Surgery | | TMW/richard | | | | A | | | | | + + documented in this encounter Visit Diagnoses Not on filedocumented in this encounter"
--- OUTSIDE RECORDS SUMMARY | ~2019-08-25 | XMS | Encounter Summary ---
Demographics + + + | Address | [address] | | | [place] [address] | + + + | Home Phone | | + + + | Preferred Language | Unknown | + + + | Marital Status | | + + + | Adventist Affiliation | Unknown | + + + | Race | Unknown | + + + | Ethnic Group | Unknown | + + + Author + + + | Author | [facility] | | | and [place] | + + + | Organization | [facility] | | | [...] Team Providers + +------+ + | Care Core Measures Abstractor Name | Role | Phone | + [...] | SLEEP DISORDER [address] | [address] | | | | | [address] [place] | [place] | | | | | [place] [address] | [address] | | | | | [phone] | | | +--------+ + + + [...]
--- OUTSIDE RECORDS SUMMARY | ~2019-08-25 | XMS | Encounter Summary ---
Demographics + + + | Address | [address] | | | [place] [address] | + + + | Home Phone [...] [place], [place] | | | | | [address] | | + + + + + Care Team Providers + +------+ + | Care Auto Overhauler Name | Role | Phone | + +------+ + PCP | Unavailable | + +------+ + Encounter Details +--------+ + + + + | Date | Type | Department | Care Team | Description | +--------+ + + + + | 05/15/ | Documentati | Health Information | Other, Faculty | | | 2019 | on | Services [address] | [phone] | | | | | [address] | | | | | | Mailcode: [id number] | | | | | | [facility] | | | | | | [place], [place] | | | | | | [address] | | | | | | [phone] | | | +--------+ + + + [...]
--- OUTSIDE RECORDS SUMMARY | ~2019-08-25 | XMS | Encounter Summary ---
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
--- OUTSIDE RECORDS SUMMARY | ~2019-08-25 | XMS | Encounter Summary ---
Demographics + + + | Address | [address] | | | [place] [address] | + + + | Home Phone | | + + + | Preferred Language | Unknown | + + + | Marital Status | | + + + | Yarsani Affiliation | Unknown | + + + [...] Team Providers + +------+ + | Care Park Landscape Architect Name | Role | Phone | + [...] | Visit | CLINIC [address] | [employer] [address] | unspecified type | | | | Street [place], | [place], [place] | (HCC) (Primary Dx); | | | | [place] [address] | [address] | Monitoring for | | | | [phone] | | long-term | | | | [...] Addison Jo ARNP - 06/14/2019 6:30 AM [facility] Patient Name: Jose G Lee | Age: 89 y.o. | : 1930 | [address] | Author: XIOMARA Erickson | Date of [...] Anticoagulation Summary above. Continue current warfarin schedule. [id number] Seen also today for non-healing biopsy site on right mormonism. Wound measures 0.7 x 1 x 0.1 cm with dry non-granulating wound bed. Has excessive tissue dryness with scarring. Wound c are order changed to applying hydrogel twice a day with no dressing to prevent further dryin g out of the wound bed and irritation. Electronically signed by: XIOMARA Erickson 06/14/2019 at 7:37 AM Portions of this chart may have been created with [employer] voice recognition software. Occasi onal wrong-word or [...] | | | | | ([facility]) Monitoring | | | | | [...]
--- OUTSIDE RECORDS SUMMARY | ~2019-08-25 | XMS | Encounter Summary ---
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 | [address] | [address] | | | | | after | [place], | [place], | | | | | 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 Please go by the hospital about one week prior to surgery and have the testing completed. On 05/07/2019 check in at Same Day Surgery (corner [address]) at 11:15 am. Your surgery is called [...] successful and comfortable surgery. Sign up for [employer] if you want easy access to your medical information online. You can: Review your medications, immunizations, allergies and medical history. View details of your past and upcoming appointments. Sign up for [employer] if you want easy access to your medical information online. Only you, your doctor and your health care team are permitted to view the information sent through [employer]. Through [employer] you can: ? Review your medications, immunizations, [...] different ways you can sign up for [employer]: ? The first way is to get online at: [email or web address] and sign up directly throug h the website prior to your appointment with us. You can call [phone] ([phone]) if you have any questions or need assistance. ? The second way is through the [employer] dominic which can be accessed with any smart phone. Ju st go to your dominic store and look up [address]. ? The third way is to do [...] might be differ ent from the original. [facility] ADMIT HISTORY AND PHYSICAL Primary Care Physician: [...] Risk Tool (ORT): Total Score 0 (04/08/19 5995) (0 to 3 = Low risk: 6% [...]
--- OUTSIDE RECORDS SUMMARY | ~2019-08-25 | XMS | Encounter Summary ---
Demographics + + + | Address | [address] | | | [place] [address] | + + + | Home Phone | | + + + | Preferred Language | Unknown | + + + | Marital Status | | + + + | Amish Affiliation | NON | + + + | Race | White | + + + | Ethnic Group | Not or | + + + Author + + + | Author | [facility] | + + + | Organization | [facility] | + + + | Address | Unknown | + + + | Phone | Unavailable | + + + Support + + + + + | Name | Relationship | Address | Phone | + + + + + | Lidia Lee | ECON | [address] | | | | | [place], [place] | | | | | [address] | | + + + + + Care Team Providers + +------+ + | Care Egg Factory Worker Name | Role | Phone | [...] | Only | [address] | [phone] | | | | | [place] | | | | | | [address] | | | | | | [phone] | | | +--------+ + + + [...] from | | | | | | [place]., [place] | | | | | | [place], [place], are six | | | | [...] | + + + + + | [facility] | [address] | [place] [address] | | | PATHOLOGY | ALHAJI TREVINO | | | + + + + + documented in this encounter Visit Diagnoses Not on filedocumented in this encounter
--- OUTSIDE RECORDS SUMMARY | ~2019-08-25 | XMS | Encounter Summary ---
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 Ploide studies revealed an anuploid tumor. The patient was advised regarding his options and now comes to [facility] for opinions about treatment options. 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 Tobacco use: The patient used [...] Quoc Gonzalez M.D., P.C. Chief, Urologic Oncology Rn Clinician, Surgery /drew cc: BRITT GILES MD [address] [place] [address] 2 [facility] [address] HIEN EMMANUEL DO [address] [facility] [address] documented in this encounter Plan of Treatment Not on filedocumented as of this encounter Visit Diagnoses Not on filedocumented in this encounter"
--- OUTSIDE RECORDS SUMMARY | ~2019-08-25 | XMS | Encounter Summary ---
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 | | | [place] | RATE,ESTIMATED | | MEDICAL | | | | mL/min/1.86e9Aqbn than | | CENTER - | | [...] [address] | [place] | [phone] | | [facility] | | [address] | | | - LABORATORY | | [...]
--- OUTSIDE RECORDS SUMMARY | ~2019-08-25 | XMS | Encounter Summary ---
Demographics + + + | Address | [address] | | | [place] [address] | + + + | Home Phone | | + + + | Preferred Language | Unknown | + + + | Marital Status | | + + + | Taoist Affiliation | Unknown | + + + | Race | Unknown | + + + | Ethnic Group | Unknown | + + + Author + + + | Author | [facility] | | | and [place] | + + + | Organization | [facility] | | [...] Team Providers + +------+ + | Care Comic Illustrator Name | Role | Phone | + +------+ + | Immanuel Oliveors MD | PCP | | + +------+ + Encounter Details +--------+ + + + + | Date | Type | Department | Care Team | Description | +--------+ + + + + | 04/05/ | Abstract | [facility] | Cody Mcadams | | | 2020 | | SURGERY [address] | MD [address] | | | | | [place] | [address] [facility] | | | | | [address] | [place] [address] | | | | | [phone] | [phone] | | | | | | | [...]
--- OUTSIDE RECORDS SUMMARY | ~2019-08-25 | XMS | Encounter Summary ---
Demographics + + + | Address | [address] | | | [place] [address] | + + + | Home Phone | | + + + | Preferred Language | Unknown | + + + | Marital Status | | + + + | Amish Affiliation | Unknown | + + + | Race | Unknown | + + + | Ethnic Group | Unknown | + + + Author + + + | Author | [facility] | | | and [place] | + + + | Organization | [facility] | | | and [...] Team Providers + +------+ + | Care Spray Applicator Name | Role | Phone | + [...] [address] | | | | | [address] [place], [place] | [address] [facility] | | | | | [address] | [place] [address] | | | | | [phone] | [phone] | | | | | | | [...]
--- OUTSIDE RECORDS SUMMARY | ~2019-08-25 | XMS | Encounter Summary ---
Demographics + + + | Address | [address] | | | [place] [address] | + + + | Home Phone | | + + + | Preferred Language | Unknown | + + + | Marital Status | | + + + | Adventism Affiliation | NON | + + + | Race | White | + + + | Ethnic Group | Not or | + + + Author + + + | Author | [facility] | + + + | Organization | [facility] | + + + | Address | Unknown | + + + | Phone | Unavailable | + + + Support + + + + + | Name | Relationship | Address | Phone | + + + + + | Lidia Lee | ECON | [address] | | | | | [place], [place] | | | | | [address] | | + + + + + Care Team Providers + +------+ + | Care Tie Man Name | Role | Phone | + [...] as of this encounter Progress Notes Interface, Cellar Worker In - 04/08/2006 5:02 AM [facility] DATE: 10/06/97 UROLOGY/ONCOLOGY CLINIC Mr. [...] Urology DAVID/ariel cc: SHAVONNE GILES MD [address] [facility] [place] [address] documented in this encounter Plan of Treatment Not on filedocumented as of this encounter Visit Diagnoses Not on filedocumented in this encounter"
--- OUTSIDE RECORDS SUMMARY | ~2019-08-25 | XMS | Encounter Summary ---
Demographics + + + | Address | [address] | | | [place] [address] | + + + | Home Phone [...] [place], [place] | | | | | [address] | | + + + + + Care Team Providers + +------+ + | Care Carpet Layer Name | Role | Phone | + [...] [id number] | | | | | | [place], [place] | | | | | | [address] | | | | | | [phone] | | | +--------+ + + + [...] | + + + + + | [facility] | [address] | [place] [address] | | | PATHOLOGY | [address] [...] | + + + + + | [facility] | [address] | [place] [address] | | | PATHOLOGY | [address] [...] | + + + + + | [facility] | [address] | [place] [address] | | | PATHOLOGY | [address] [...] | + + + + + | [facility] | [address] | [place] [address] | | | PATHOLOGY | [address] | | | + + + + + documented in this encounter Visit Diagnoses Not on filedocumented in this encounter"
--- OUTSIDE RECORDS SUMMARY | ~2019-08-25 | XMS | Encounter Summary ---
Demographics + + + | Address | [address] | | | [place] [address] | + + + | Home Phone | | + + + | Preferred Language | Unknown | + + + | Marital Status | | + + + | Oriental Orthodox Affiliation | NON | + + + | Race | White | + + + | Ethnic Group | Not or | + + + Author + + + | Author | [facility] | + + + | Organization | [facility] | + + + | Address | Unknown | + + + | Phone | Unavailable | + + + Support + + + + + | Name | Relationship | Address | Phone | + + + + + | Lidia Lee | ECON | [address] | | | | | [place], [place] | | | | | [address] | | + + + + + Care Team Providers + +------+ + | Care Director China Name | Role | Phone | + +------+ + PCP | Unavailable | + +------+ + Encounter Details +--------+ + + + + | Date | Type | Department | Care Team | Description | +--------+ + + + + | 08/03/ | Results | LAB CORE [address] | [place], Faculty | | | 1997 | Only | [address] | [phone] | | | | | [place] | | | | | | [address] | | | | | | [phone] | | | +--------+ + + + [...] | | | | | and a national account representative | | | | | | [...] complete | | | | | | national account representative section | | | | | | of prostatic [id number], | | | | | | right [...] | | | | | | | [place] | | | | | | [place] | | | | | | | [...] | + + + + + | [facility] | [address] | [place] [address] | | | PATHOLOGY | [address] | | | + + + + + documented in this encounter Visit Diagnoses Not on filedocumented in this encounter"
--- OUTSIDE RECORDS SUMMARY | ~2019-08-25 | XMS | Encounter Summary ---
Demographics + + + | Address | [address] | | | [place] [address] | + + + | Home Phone | | + + + | Preferred Language | Unknown | + + + | Marital Status | | + + + | Moravian Affiliation | NON | + + + | Race | White | + + + | Ethnic Group | Not or | + + + Author + + + | Author | [facility] | + + + | Organization | [facility] | + + + | Address | Unknown | + + + | Phone | Unavailable | + + + Support + + + + + | Name | Relationship | Address | Phone | + + + + + | Lidia Lee | ECON | [address] | | | | | [place], [place] | | | | | [address] | | + + + + + Care Team Providers + +------+ + | Care Street Supervisor Name | Role | Phone | [...] [id number] | | | | | | [place], [place] | | | | | | [address] | | | | | | [phone] | | | +--------+ + + + [...] + + + + | [facility] | [address] | [place] [address] | | | PATHOLOGY | [address] [...] + + + + | [facility] | [address] | [place] [address] | | | PATHOLOGY | [address] [...] + + + + | [facility] | [address] | [place] [address] | | | PATHOLOGY | [address] [...] + + + + | [facility] | [address] | [place] [address] | | | PATHOLOGY | [address] | | | + + + + + documented in this encounter Visit Diagnoses Not on filedocumented in this encounter"
--- OUTSIDE RECORDS SUMMARY | ~2019-08-25 | XMS | Encounter Summary ---
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
--- OUTSIDE RECORDS SUMMARY | ~2019-08-25 | XMS | Encounter Summary ---
Demographics + + + | Address | [address] | | | [place] [address] | + + + | Home Phone | | + + + | Preferred Language | Unknown | + + + | Marital Status | | + + + | Christian Affiliation | NON | + + + | Race | White | + + + | Ethnic Group | Not or | + + + Author + + + | Author | [facility] | + + + | Organization | [facility] | + + + | Address | Unknown | + + + | Phone | Unavailable | + + + Support + + + + + | Name | Relationship | Address | Phone | + + + + + | Lidia Lee | ECON | [address] | | | | | [place], [place] | | | | | [address] | | + + + + + Care Team Providers + +------+ + | Care Registered Nurse Post Partum Name | Role | Phone | + +------+ + PCP | Unavailable | + +------+ + Encounter Details +--------+ + + + + | Date | Type | Department | Care Team | Description | +--------+ + + + + | 05/15/ | Documentati | Health Information | Other, Faculty | | | 2019 | on | Services [address] | [phone] | | | | | [address] | | | | | | Mailcode: [id number] | | | | | | [facility] | | | | | | [place], [place] | | | | | | [address] | | | | | | [phone] | | | +--------+ + + + [...]
--- OUTSIDE RECORDS SUMMARY | ~2019-08-25 | XMS | Clinical Summary ---
Demographics + + + | Address | [address] | | | [place] [address] | + + + | Home Phone [...] [place], [place] | | | | | [address] | | + + + + + Care Team Providers + +------+ + | Care Dairy Nutritionist Name | Role | Phone | + +------+ + PCP | Unavailable | + +------+ + Source Comments MANJU is fully live on both [facility] and [facility] Allergies No Known Allergies Medications Not on [...]
--- OUTSIDE RECORDS SUMMARY | ~2019-08-25 | XMS | Encounter Summary ---
Demographics + + + | Address | [address] | | | [place] [address] | + + + | Home Phone [...] Team Providers + +------+ + | Care Home Care Liaison Name | Role | Phone | + [...] | SLEEP DISORDER [address] | [address] | Dx) | | | | [address] [place] | [place] | | | | | [place] [address] | [address] | | | | | [phone] | | | +--------+---------+ + + + [...] documented in this encounter Progress Notes Julian Clemnet PA - 11/25/2013 10:54 AM PDT Subjective: Patient ID: Jose G Lee is a 83 y.o. male. HPI last office visit was: 01/19/2010 date of polysomnography: 12/12/1998 AHI: RDI: 99.7 O2%: 87% Machine type: Anabela with nasal mask obtained from: [facility] in [place] pressure: 12 cm Nights using CPAP: 254/254 [...] appr opiate paperwork. Thirty minutes were spent tirv-td-njry, with the majority of time spent i n counseling. Julian Clement PA-C cc: Immanuel Oliveros MD Lia Pryor, Master of Arts - 11/25/2013 10:32 AM PDTFormatting of this note might be different from the origina l. 11/25/13 1000 Mos[place]o Depression Inventory-II Depression Score 8 - Minimal depression Insomnia Severity Index Insomnia Severity Index 2 [place] Sleepiness Scale Sitting and reading 1 Watching [...]
--- OUTSIDE RECORDS SUMMARY | ~2019-08-25 | XMS | Encounter Summary ---
Demographics + + + | Address | [address] | | | [place] [address] | + + + | Home Phone | | + + + | Preferred Language | Unknown | + + + | Marital Status | | + + + | Anabaptist Affiliation | Unknown | + + + [...] Team Providers + +------+ + | Care Hacksaw Inspector Name | Role | Phone | + +------+ + | Immanule Oliveros MD | PCP | | + [...] | SLEEP DISORDER [address] | [address] | | | | | [address] [place] | [place] | | | | | [place] [address] | [address] | | | | | [phone] | | | +--------+ + + + [...]
--- OUTSIDE RECORDS SUMMARY | ~2019-08-25 | XMS | Encounter Summary ---
Demographics + + + | Address | [address] | | | [place] [address] | + + + | Home Phone | | + + + | Preferred Language | Unknown | + + + | Marital Status | | + + + | Caodaism Affiliation | Unknown | + + + | Race | Unknown | + + + | Ethnic Group | Unknown | + + + Author + + + | Author | [facility] | | | and [place] | + + + | Organization | [facility] | | | [...] Team Providers + +------+ + | Care Pharmacy Technician Program Director Name | Role | Phone | [...] [address] | | | | | [address] [place], [place] | [address] [facility] | | | | | [address] | [place] [address] | | | | | [phone] | [phone] | | | | | | | [...]
--- OUTSIDE RECORDS SUMMARY | ~2019-08-25 | XMS | Encounter Summary ---
Demographics + + + | Address | [address] | | | [place] [address] | + + + | Home Phone | | + + + | Preferred Language | Unknown | + + + | Marital Status | | + + + | Confucianist Affiliation | NON | + + + | Race | White | + + + | Ethnic Group | Not or | + + + Author + + + | Author | [facility] | + + + | Organization | [facility] | + + + | Address | Unknown | + + + | Phone | Unavailable | + + + Support + + + + + | Name | Relationship | Address | Phone | + + + + + | Lidia Lee | ECON | [address] | | | | | [place], [place] | | | | | [address] | | + + + + + Care Team Providers + +------+ + | Care Border Measurer Name | Role | Phone | + +------+ + PCP | Unavailable | + +------+ + Encounter Details +--------+ + + + + | Date | Type | Department | Care Team | Description | +--------+ + + + + | 05/05/ | Results | LAB CORE [address] | [facility], Faculty | | | 1997 | Only | [address] | [phone] | | | | | [place] | | | | | | [address] | | | | | | [phone] | | | +--------+ + + + [...] from | | | | | | [facility] [place] | | | | | | [place], [place], are six | | | | [...] + + + + + | [facility] | [address] | [place] [address] | | | PATHOLOGY | [address] | | | + + + + + documented in this encounter Visit Diagnoses Not on filedocumented in this encounter
--- OUTSIDE RECORDS SUMMARY | ~2019-08-25 | XMS | Encounter Summary ---
Demographics + + + | Address | [address] | | | [place] [address] | + + + | Home Phone | | + + + | Preferred Language | Unknown | + + + | Marital Status | | + + + | Roman Catholic Affiliation | NON | + + + [...] [place], [place] | | | | | [address] | | + + + + + Care Team Providers + +------+ + | Care Managing Partner [employer] Name | Role | Phone | + +------+ + PCP | Unavailable | + +------+ + Encounter Details +--------+ + + + + | Date | Type | Department | Care Team | Description | +--------+ + + + + | 08/02/ | Results | | Other, Faculty | | | 1997 | Only | | [phone] | | +--------+ + + + + [...] | | + +---------+ + + | [facility] DEPARTMENT OF | | | | | RADIOLOGY | | | | + +---------+ + + documented in this encounter Visit Diagnoses Not on filedocumented in this encounter"
--- OUTSIDE RECORDS SUMMARY | ~2019-08-25 | XMS | Clinical Summary ---
Demographics + + + | Address | [address] | | | [place] [address] | + + + | Home Phone [...] [place], [place] | | | | | [address] | | + + + + + Care Team Providers + +------+ + | Care Clinical Data Associate Name | Role | Phone | + +------+ + PCP | Unavailable | + +------+ + Source Comments MANJU is fully live on both [facility] and [facility] InPatient.[facility] Allergies No Known Allergies Medications [...]
--- OUTSIDE RECORDS SUMMARY | ~2019-08-25 | XMS | Encounter Summary ---
Demographics + + + | Address | [address] | | | [place] [address] | + + + | Home Phone | | + + + | Preferred Language | Unknown | + + + | Marital Status | | + + + | Mormonism Affiliation | Unknown | + + + | Race | Unknown | + + + | Ethnic Group | Unknown | + + + Author + + + | Author | [facility] | | | and [place] | + + + | Organization | [facility] | | [...] Providers + +------+ + | Care Home Decorator Name | Role | Phone | + +------+ + PCP | Unavailable | + +------+ + Encounter Details +--------+ + + + + | Date | Type | Department | Care Team | Description | +--------+ + + + + | 12/12/ | Hospital | [facility] | | | | 1998 | Encounter | MED CTR SLEEP | | | | | | CENTER [address] | | | | | | [place] | | | | | | [address] | | | | | | [phone] | | | +--------+ + + + [...]
[~2019-08-25 20:09] MED LIST changes: +FUROSEMIDE80 MG PO
[2019-08-25] MEDS ORDERED: TORSEMIDE20 MG PO (20:25)
[2019-08-25] MEDS ORDERED: VITAMIN D325 MC1 PO (20:27)
--- NOTE | 2019-08-25 21:11 | EKG ---
[facility] [address] [facility] [place] [address] Signed Idioventricular rhythm Left axis deviation Right bundle branch block Abnormal ECG When compared with ECG of 03-JUN-2019 11:49, Idioventricular rhythm has replaced Atrial fibrillation Vent. rate has decreased BY 54 BPM Confirmed by JOMAR GLEZ DO ([id number]) on 08/25/2019 9:11:31 PM Electronically Signed By: JOMAR GLEZ DO 08/25/19 211 PATIENT NAME: AFSHIN JIMÉNEZ Electrocardiogram DATE OF : [birth year] PHYSICIAN: JOMAR GLEZ DO REPORT #: [id number] REPORT IS CONFIDENTIAL AND NOT TO BE RELEASED WITHOUT AUTHORIZATION
--- NOTE | 2019-08-25 23:15 | NUR ---
PT ADMITTED TO ROOM 120 FROM ED. REQUIRED MAX ASSIST OF STAFF TO PULL HIM ACROSS FROM STRETCHER TO BED. RA, SATS IN THE 90'S. TAPED ATTENDS IN PLACE, WAS INCONT IN ED PRIOR TO ADMISSION. RIGHT ANKLE, LE WITH 2+ PITTING EDEMA, NOTABLE SCAR ALONG RIGHT KNEE. LEFT LLE WITH TRACE. PERIAREA EXCORIATION NOTED, ED PLACED BARRIER CREAM PRIOR TO ADMISSION. PT ABLE TO ANSWER QUESTION, HOWEVER, UNABLE TO PROVIDE HISTORY, DOESN'T KNOW WHEN HIS LAST BM WAS, OR IF HE USES THE WALKER OR W/C. HR IN THE 30'S. WILL PLACE BED ALARM UNTIL SAFETY OF PT IS KNOWN.
--- NOTE | 2019-08-25 23:21 | NUR ---
SPOKE WITH DR GLEZ ABOUT PARAMETERS FOR CALLING HIM TONIGHT ABOUT PT'S HEART RATE. HE WANTS TO BE NOTIFIED IF PT IS SYMPTOMATIC/UNCOMFORTABLE. HE ALSO CALLED A LITTLE WHILE AGO TO MAKE SURE WE GIVE THE FULL ORDER OF POTASSIUM. NOTIFIED MARIBELL DUTTA.
--- NOTE | 2019-08-26 00:42 | NUR ---
RECEIVED PC FROM PT DTR HERMAN. INQUIRED OF PT BASELINE. PT USUAL HABITS IS UP AMBULATING WITH WALKER, TO AND FROM MEALS, INDEPENDENTLY TOILETING, WEARS BRIEF FOR ACCIDENTS. THIS WEEK PT HAS NOT BEEN ABLE TO AMBULATE, TOOK MEALS IN HIS ROOM. FORGETFUL, TALKING ABOUT SERVICE BUT WAS NEVER IN THE SERVICE. STAFF DRESSED PT. WHILE SHE IS AWARE OF NO VISITORS SHE REQUESTED TO BE ABLE TO STAY WITH HER DAD IF HE GETS ANXIOUS. WILL DISCUSS WITH INTERN BRAND. REASSURED DAUGHTER, IF PT COMFORT CARE, FAMILY WOULD BE ALLOWED IN.
--- NOTE | 2019-08-26 01:10 | NUR ---
2 pa assist to bsc after failed attempt to use the urinal. Pt required moderate assist to the bsc with fww, wanted to "stand" unable to ambulate to the bathroom, attempted to have him use the urinal standing up. After min or so, pt suddenly started to sit down on the commode without warning. Required max assist with cueing and another staff member to moved the bed so staff could get him safely on the bed. Required max assist to get feet into bed, adjust position in bed. Potassium infusing per order, pt finishing his second cup water since admission.
--- NOTE | 2019-08-26 01:32 | NUR ---
PT EATTING HIS SECOND PUDDING SINCE ADMISSION. ASKED TO THIS NURSE, IS THAT THE KIDS ON THE PORCH? ORIENTATED HIM BACK TO HIS SURROUNDINGS.
--- NOTE | 2019-08-26 02:28 | NUR ---
WITH THE HELP OF TRA REYNA WE BOOSTED HIM UP IN HIS BED. FRESH ICE WATER GIVEN. PT NEEDS NOTHING MORE AT THIS TIME.
--- NOTE | 2019-08-26 03:11 | NUR ---
2 STAFF ADJUSTED PT AGAIN, UP IN BED ELEVATED FEET, HPB ELEVATED. PT BRANDIERS OUT OCCASSIONALLY "ANTHONY"
--- NOTE | 2019-08-26 03:33 | NUR ---
RECEIVED REPORT FROM MARIBELL CLAY RN, WILL ASSUME CARE OF PT AT THIS TIME. HE IS AWAKE IN BED AND STATEMENT SERVICES REPRESENTATIVE JUNE IS IN ROOM TAKING VS.
--- NOTE | 2019-08-26 03:38 | NUR ---
VITALS DONE AND CHARTED. BEDSIDE TABLE AND CALL LIGHT IN REACH.
--- NOTE | 2019-08-26 03:58 | NUR ---
DID BLADDER SCAN ON PT FOR 551 ML. INFORMED RN MARIBELL.
--- NOTE | 2019-08-26 05:12 | NUR ---
DR GLEZ NOTIFIED OF PT BLADDER SCAN GREATER THAN 500, INABILITY TO USE URINAL, AND INABILITY TO VOID WHEN UP. ORDERS RECEIVED.
--- NOTE | 2019-08-26 05:50 | NUR ---
APPROX 15 MIN AGO, 2 OIL SCOUT'S INTO PT ROOM, MAX ASSIST TO GET OUT OF BED, WITH MAX CUEING TO ATTEMPT TO HAVE PT VOID. BEFORE THE URINAL WAS PLACED, PT VOIDED XL AMOUNT FLOOR, AND INTO ATTENDS. STRONG FLOW. ONCE COMPLETE, WITH ASSIST OF A 3RD STAFF PERSON TO PLACE ATTENDS, WHILE 2 STAFF STEADIED HIM. REST BREAK PROVIDED, PT COMPLAINED OF FEELING VERY WEAK. ATTEMPTED TO HAVE PT STAND AND MOVE FURTHER UP TO HEAD OF BED, ABLE TO TAKE 2 STEPS BEFORE COLLASPING ONTO THE BED. WITH MAX ASSIST 3, STAFF REPOSITIONED PT. PT STATES THAT THE ONLY WAY HE CAN PEE IS "STANDING". LAST DOSE KCL IV INFUSING. RAC IV SITE UNREMARKABLE. PT TAKING MULT DRINKS WATER ON HIS OWN. (USED WALKER IN PROCESS OF STANDING AND ATTEMPTING TO MOVE TOWARD HEAD OF BED).
--- NOTE | 2019-08-26 06:10 | NUR ---
PT IS CONFUSED AND WORDS ARE NOT MAKING SENSE. HE DENIES NEEDS AT THIS TIME HE IS CLOSE TO NURSES STATION AND CALL LIGHT IS CLOSE.
--- NOTE | 2019-08-26 07:04 | NUR ---
REPORT RECEIVED FROM RHINA DUTTA. PT RESTING IN BED WATCHING TV. PT DENIES PAIN AND NAUSEA. PT ANTICIPATING BREAKFAST. BED RAILS UP. CALL LIGHT WITHIN REACH. NO ADDITIONAL REQUESTS OR COMPLAINTS AT THIS TIME.
--- NOTE | 2019-08-26 07:56 | NUR ---
MORNING ASSESSMENT DUE. PT ANTICIPATING BREAKFAST. PT DENIES PAIN AND NAUSEA. WALESKA LIFT UP TO CHAIR. PT UP TO STAND WITH 3PA AND FWW TO VOID. UNABLE TO VOID AT THIS TIME. FRANCISCO CARE DONE. FRESH DEPENDS IN PLACE. BARRIER CREAM APPLIED TO REDDNESS AROUND FRANCISCO AREA. LUNG SOUNDS CLEAR. PT CONTINUES TO BE BRADYCARDIC WITH APICAL PULSE OF 39, IRREGULAR HR NOTED. +2 EDEMA TO RLE, +1 TO LEFT LOWER EXTREMITY. HEEL PROTECTORS INPLACE. PT STATES "I DON'T WANT ANY CARE FROM THE DOCTOR, I JUST WANT TO GO HOME." PTS WISHES ACKNOWLEDGED. PT RESTING IN CHAIR WITH EYES CLOSED. WATER WITHIN REACH. CALL LIGHT WITHIN REACH. NO ADDITIONAL REQUESTS OR COMPLAINTS. PT EASILY VIEWED FROM NURSES STATION.
--- NOTE | 2019-08-26 07:57 | NUR ---
PATIENT AWAKE IN BED. ASSISTED NURSE SIMA WITH TRANSFER TO CHAIR USING WALESKA. CALL LIGHT IN REACH. PATIENT IS COMFORTABLE AND DOESNT NEED ANYTHING AT THIS TIME.
--- NOTE | 2019-08-26 09:56 | NUR ---
PATIENT STOOD TO VOID WITH 3 PERSON ASSIST, VOIDED, BECAME SYANOTIC AND GASPING, PLACED IN CHAIR, TRANSFERRED TO BED WITH BED ALARM ON. DR. GLEZ AND NURSE SIMA NOTIFIED. PATIENT HAS PULSE AT 38
--- NOTE | 2019-08-26 10:03 | NUR ---
MEDICATION ORDERS PLACED. CHARGE NURSE REPORTS TO THIS RN THAT SHE WAS GETTING PT UP TO PEE AND PT HAD EPISODE OF CYANOSIS. PT BACK TO BED AT THIS TIME. HR =30-40'S. PT DENIES PAIN AND NAUSEA. ENGAGING IN CONVERSATION BUT DOSES OFF FREQUENTLY. MEDICAITON GIVEN. PT SWALLOWS WITHOUT DIFFICULTY. HOB ELEVATED FOR ASPIRATION PRECAUTIONS. BED RAILS UP. BED ALARM ON. CALL LIGHT WITHIN REACH. PT EASILY VIEWED FROM NURSES STATION.
--- NOTE | 2019-08-26 10:40 | NUR ---
0830 Pt was discussed in IDT with Dr. Mcmahan. Will speak with daughter when she arrives. 1040 Spoke with daughter and received call from Dr Mcmahan requesting Hospice consult on behalf of family. They are unsure if pt will return to [facility] or return to his home with family and caregivers. They are attempting to make a decision. Informed I will call [facility] as requested and ask them to call Katerina [phone]. [address] [facility]. Left message for [place], family would like a consult and gave the number for Katerina.
--- NOTE | 2019-08-26 10:40 | NUR ---
THIS RN TO ROOM TO CHECK ON PT. UMESH, PTS FAMILY ARRIVED. UMESH UPDATED AND STATES HER QUESTIONS HAVE BEEN ANSWERED. PT RESTING IN BED. DENIES PAIN AND NAUSEA. MD TO BEDSIDE FOR ROUNDS. PTS SON ON PHONE DURING ROUNDS AND STATES PT WAS TAKING METOLAZONE. FAMILY IN AGREEMENT WITH PLAN OF CARE AND STATE THEIR QUESTIONS HAVE BEEN ANSWERED. PT RESTING IN BED. POTASSIUM INFUSING. BED RAILSUP. CALL LIGHT WITHIN REACH. UMESH AT BEDSIDE.
--- NOTE | 2019-08-26 12:06 | NUR ---
NOON ASSESSMENT AND INTERVENTIONS DUE. VILLANUEVA CATHETER PLACED PER PROTOCOL. 14 FENCH COUDE CATHETER PLACED WITH 10ML BALOON. 450ML CLEAR YELLOW URINE RETRIEVED WITH CATHETER PLACEMENT. ASSESSMENT DONE. LUNG SOUNDS CLEAR. HR = 41 WITH O2 OF 97%. PT CONFUSED, DISORIENTED TO PLACE, EVENTS, TIME, AND DATE. PT ORIENTED TO SELF AND FAMILY AT BEDSIDE. EDEMA CONTINUES TO LOWER EXTREMITIES. NEW IV STARTED PER PROTOCOL IN LEFT FORARM, BRISK BLOOD RETURN NOTED. IV FLUIDS STARTED (SEE MAR), POTASSIUM INFUSION COMPLETE. FIELD START IV DC'D PER PROTOCOL GAUZE AND COBAN APPLIED. LUNCH ORDER PLACED FOR PT AND FAMILY. PT EATING LUNCH. NO ADDITIONAL REQUESTS OR COMPLAINTS. CALL LIGHT WITHIN REACH. BED RAILS UP. BED ALARM ON.
[2019-08-26] MEDS ORDERED: TORSEMIDE20 MG PO (12:58)
[2019-08-26] MEDS ORDERED: TYLENOL EXTRA500 MG PO (13:04)
--- NOTE | 2019-08-26 13:14 | NUR ---
MED REC COMPLETE
--- NOTE | 2019-08-26 13:17 | NUR ---
PTS FAMILY TO NURSES STATION STATING PT CONTINUES TO HAVE DISCOMFORT WITH VILLANUEVA CATHETER. MD CALLED REGARDING PTS DISCOMFORT WITH VILLANUEVA CATHETER. CONSIDERING BELLADONNA. NO NEW ORDERS AT THIS TIME. PT REPOSITOINED. VILLANUEVA DRAINING TO GRAVITY.
--- NOTE | 2019-08-26 13:20 | NUR ---
ECHO TECHNITIAN TO BEDSIDE FOR PROCEEDURE. PT POSITIONED TO LEFT SIDE.
--- NOTE | 2019-08-26 14:31 | NUR ---
MEDICATION ORDERED FOR PTS DISCOMFORT WITH CATHETER. GIVEN ORDERED. PT SHOWING INCREASED CONFUION. DIORIENTED TO ALL BUT SELF AND FAMILY. PT SENTENCES DISORDERED "WHATS GOING TO HAPPEN IN THE INSURANCE WORLD?" "CAN'T YOU TALK." "IS IT A 9 OR A 6." PT TALKS TO PEOPLE WHO ARE NOT PRESENT. EASILY REORIENTED. PT RESTING IN BED. BED RAILS UP. FAMILY AT BEDSIDE. CALL LIGHT WITHIN REACH.
--- NOTE | 2019-08-26 15:19 | NUR ---
PT RESTING IN BED. VITALS TAKEN. VILLANUEVA EMPTIED OF 175ML PINK URINE. PT REPORTS THE PAIN IN HIS PENIS "IS BETTER, IT JUST COMES AND GOES NOW." WATER REFILLED. PT CONTINUES RESTING, CALL LIGHT WITHIN REACH. FAMILY AT BEDSIDE.
--- NOTE | 2019-08-26 15:29 | NUR ---
PTS FAMILY TO NURSES STATION STATING PT NEEDS TO HAVE A BOWEL MOVEMENT. PT STAES "I WANT TO STAND UP AND GO ACROSS THE SOTO." EDUCATION DONE WITH PT REGARDING SAFETY. BED AL PLACED. PT UNABLE TO HAVE BOWEL MOVEMENT. BED AL REMOVED. FRANCISCO CARE DONE. DEPENDS IN PLACE. PT RESTING IN BED. BED RAILS UP. CALL LIGHT WITHIN REACH.
--- NOTE | 2019-08-26 15:30 | NUR ---
Notified by Christi at [facility] son is wanting Hospice from [facility]. Updated daughter had requested [facility] and I have sent the chart. Went and spoke with Katerina and she states she had requested [facility] as she has a friend who works there. They would prefer [facility] as this is [facility] preference. Informed I will send the chart to [facility] and cancel [facility]. Called Mariya and attempted to fax chart. Unable to send. Chart scanned to [facility]. Called and left a message of where I sent the chart.
--- NOTE | 2019-08-26 16:47 | NUR ---
AFTERNOON ASSESSMENT AND MEDICATION DUE. PT RESTING IN BED. MD UPDATED REGARDING PTS URIN COLOR. URINE NOW A LIGHT PINK, LESS RED THAN BEFORE. NO NEW ORDERS FROM MD AT THIS TIME. WILL CONTINUE TO MONITOR. EDUCATION AND UPDATE DONE WITH FAMILY. VITALS TAKEN. ASSESSMENT DONE. PT STATES "[place]ISITING MY GIRLFRIEND." PT UNABLE TO STATE WHERE HE IS OR WHY HE IS AT THE HOSPITAL. PT ABLE TO STATE HIS NAME AND BIRTHDAY WELL RECOGNIZE FAMILY MEMBERS. APICAL HEART RATE TAKEN = 38 BMP. MD AWARE. LUNG SOUNDS CLEAR. BOWEL TONES HEARD. PT DENIES PAIN AND NAUSEA. +2 EDEMA TO RLE CONTINUES PT WATCHING TV. CALL LIGHT WITHIN REACH. FAMILY AT BEDSIDE. BED RAILS UP.
--- NOTE | 2019-08-26 18:00 | NUR ---
CORPORATE SECURITY MANAGER CALLS THIS RN TO BEDSIDE. PT AND FAMILY CONCERNED BECAUSE PT STATES HE NEEDS TO HAVE A BOWEL MOVMENT AND WANTS TO GET UP TO THE COMODE/TOILET. EDUCATION DONE REGARDING PTS BRADYCARDIA AND AMBULATION. PT AND FAMILY VERBALZE RISK AND AGREE TO A BEDPAN. BEDPAN PLACED. PT PASSESS GAS, NO BOWEL MOVMENT NOTED. 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 PT BLANKS OUT DURING THIS TIME. PT COMES BACK AND REPORTS "I THINK I WAS OUT THERE MAYBE I HAD A STROKE." MD NOTIFIED. PT DENIES PAIN AND NAUSEA. PT LYING FLAT AND REPORTS "FEELING BETTER." DAUGHTER AT BEDSIDE. PT ALLOWED TO REST.
--- NOTE | 2019-08-26 18:30 | NUR ---
HOTEL DESK CLERK CALLS THIS RN TO BEDSIDE. REPORTS PT WAS EATING DINNER AND "HAD ANOTHER EPISODE" OF CYANOSIS AND LIMB SHAKING. PT ALSO BLANKS OUT DURING THIS TIME. PT COMES BACK AND REPORTS "I WAS OUT AGAIN LIKE I WAS LOOKING IN A MIRROR AND SEEING EVERYTING BUT WASN'T THERE." NOTIFIED. NO NEW ORDERS AT THIS TIME. PT DENIES PAIN AND NAUSEA. PT REPORTS HIS ONLY DISCOMFORT IS WITH THE CATHETER AND "GAS PAIN." PT DECLINES OFFERES FOR STOOL SOFTENER OR GAS-X. PT LYING FLAT AGAIN AND REPORTS FEELIGN BETTER. DAUGTHER AT BEDSIDE AND REPORTS HER SISTER IS ON HER WAY. CALL LIGHT WITHIN REACH. BED RAILS UP.
--- NOTE | 2019-08-26 18:50 | NUR ---
PTS DAUGHTER HERMAN ARRIVED. HERMAN UPDATED ON PTS CONDITION AND STATES HER QUESTIONS HAVE BEEN ANSWERED. PT RESTING ON BACK IN SUPIN POSITOIN. DENIES PAIN AND NAUSEA. CALL LIGHT WITHIN REACH.
--- NOTE | 2019-08-26 18:53 | NUR ---
PT HERE WITH WEAKNESS AND BARDYCARDIA. CYANOSIS EPISODE THIS SHIFT WHEN ATTEMPTING TO STAND. PT ON BEDREST SINCE THIS TIME. PT TOLERATING REGULAR DIET WITH MODERATE APPTITIE. VILLANUEVA CATHER PLACED WITH DIFFICULTY THIS SHIFT, YELLOW URINE AT FIRST THEN RED FADING TO PINK. BELLADONA ORDERED FOR VILLANUEVA CATHER RELATED PAIN, GIVEN X1 THIS SHIFT. HEART RATE 30-40'S THIS SHIFT. IV POTASSIUM GIVEN THIS SHIFT. ECHO DONE THIS SHIFT PER FAMILY PREFERENCE. PT DENYING PAIN AND NAUSEA BUT FOR GAS PAIN ANF CATHETER DISCOMFORT. VILLANUEVA QUANTITY SUFFICIENT. PT DOES NOT USE CALL LIGHT. FAMILY AT BEDSIDE.
--- NOTE | 2019-08-26 19:27 | NUR ---
PATIENT HAND OFF REPORT FROM TRA GAO. PATIENT RESTING QUIETLY IN BE, DENIES PAIN AND HAS 2 DAUGHTERS AT BEDS SIDE. NO NEEDS AT THIS TIME. CALL LIGHT IN REACH.
--- NOTE | 2019-08-26 20:16 | NUR ---
MD AWARE OF DECREASED CARDIOVASCULAR FUNCTION.
--- NOTE | 2019-08-26 20:25 | NUR ---
PATIENT'S FAMILY JUST CAME RUNNING OUT OF THE ROOM ASKING FOR HELP. PATIENT WAS A LITTLE RED IN THE FACE APPEAREDD CONFUSED AND UNCOMFORTABLE AND REACHING FOR THE CEILING. HELPED CALM THE PATIENT AND GOT VS, WHICH WERE BETTER THAN HIS BASE LINE AT BEGINING OF THE SHIFT. PATIENT FAMILY INFORMED ME HE HAD SAID THINGS GOT A LITTLE BLURRY AND HE HAD SOME ABD DISCOMFORT, BUT THESE THINGS WERE NOW GONE AND HE WAS TO WHERE HE WAS BEFORE. FAMILY BACK IN VISITING AND WILL CALL IF ANY FURTHER PROBLEMS.
--- NOTE | 2019-08-26 22:53 | NUR ---
IV PUMP ALARMING, NEW BAG IV FLUIDS HUNG AND INFUSING AT 75MLS/HR. SITE WNL. NO FURTHER NEEDS, CALL LIGHT IN REACH. FAMILY IN ROOM.
--- NOTE | 2019-08-26 23:08 | NUR ---
PER REQUEST OF FAMILY MEMBERS OF PT I GAVE THEM TWO PILLOWS AND TWO BALNKETS. THEY NEED NOTHING MORE AT THIS TIME.
--- NOTE | 2019-08-27 00:26 | NUR ---
PATIENT IS GETTINNG A LITTLE AGITATED AND FAMILY IS WANTING SOMETHING TO HELP HIM BE MORE CALM AND HOPEFULLY SLEEP. CALLED DR. WALKER AND SHE IS PUTTING IN ORDERS FOR SOME ATIVAN.
--- NOTE | 2019-08-27 01:04 | NUR ---
CHANGED PT'S ATTEND DUE TO A SMALL SMEAR OF BM. REPOSITIONED PT UP IN BED. BEDSIDE TABLE AND CALL LIGHT IN [facility]. 2 FAMILY MEMBERS ARE IN THE ROOM, THEY NEED NOTHING MORE AT THIS TIME.
--- NOTE | 2019-08-27 01:14 | NUR ---
PATIENT A LITTLE CALMER NOW AFTER 1MG IV ATIVAN AND CHANGING HIS ATTENDS. PATIENT ALSO SUCKED ON AN ORAL SWAB AND TOOK IN A FEW ORAL ICE CHIPS. TWO DAUGHTERS REMAIN AT BEDSIDE. CALL LIGHT IN REACH.
--- NOTE | 2019-08-27 04:09 | NUR ---
DR. WALKER AWARE OF LOW BLOOD PRESSURES AND HEART RATE. PATIENT HAS BEEN CALMER, BUT STILL HAS NOT SLEPT SINCE HIS FIRST 2MG OF MORPHINE, AND THE FAMILY REQUEST THIS REPEATED SO 2 MOR MG GIVEN IV AND PATIENT BOOSTED UP IN BED. CALL LIGHT IN REACH. DAUGHTERS IN ROOM.
--- NOTE | 2019-08-27 04:22 | NUR ---
PATIENT REALLY HAS NOT SLEPT ALL NIGHT. PATIENT HAS BEEN ANXIOUS, AND FAMILY HAS HAD ME CALL X2 FOR MEDS TO TRY AND HELP WITH THIS. 1/2 MF OF ATIVAN IV MADE PATIENT MORE NERVOUS, AND 2MG OF IV MORPHINE HAS BEEN GIVEN X2. WARM BLANKETS, MOUTH SWABS, ICE CHIPS, AND READJUSTING PATIENT IN BED, STILL HAS NOT ALLOWED HIM TO SLEEP. HE IS CALMER THAN HE WAS. MORE CONFUSED NOW PROBABLY DUE TO MEDS. MD AWARE OF SOFT B/P AND BRADICARDIA. PATIENT'S 2 DAUGHTERS REMAIN AT BEDSIDE.
--- NOTE | 2019-08-27 05:43 | NUR ---
PATIENT GIVEN ANOTHER 2MG IV MORPHINE FOR COMFORT.
--- NOTE | 2019-08-27 06:28 | NUR ---
PT CALM, RESTING, EYES CLOSED, NO DISTRESS. DR WALKER NOTIFIED OF NSG JUDGEMENT TO HOLD AM LABS UNTIL PT IS AWAKE, STATED OK. FAMILY ROOMING
--- NOTE | 2019-08-27 07:35 | NUR ---
RECIEVED REPORT FROM TRA ALVAREZ. FAMILY CONCERNED ABOUT PATIENT RESTLESSNESS AND REQUESTING MEDICATION. UPON ENTERING ROOM, PATIENT RESTLESS, DAUGHTERS AT BEDSIDE. ASSESSMENT COMPLETED. MEDICATION GIVEN PRESCRIBED. PATIENT ALLOWED TO REST AFTER. BED RAILS UP X2, FAMILY AT BEDSIDE.
--- NOTE | 2019-08-27 07:47 | NUR ---
DR. WALKER AWARE OF BRADYCARDIA.
--- NOTE | 2019-08-27 08:57 | NUR ---
DESATS DOWN TO 84% ON ROOM AIR. O2 PLACED ON PATIENT FOR COMFORT AT 3L/OXYMASK.
--- NOTE | 2019-08-27 10:40 | NUR ---
RECEIVED A CALL FROM CLAUDIO AT [facility] [phone]. SHE STATES PATIENT HAS BEEN ACCEPTED AND THEY HAVE SPOKEN TO [facility] WHO STATE THEY COULD ACCEPT PATIENT BACK TODAY. HOSPICE WILL CALL FAMILY DIRECTLY TO DISCUSS HIS NEEDS OF EQUIPMENT. SHE STATES THEY CAN ADMIT HIM AROUND 1-2PM TODAY AT [facility]. CM WILL CONTINUE TO FOLLOW. STAFF UPDATED.
--- NOTE | 2019-08-27 11:00 | NUR ---
SPOKE WITH CLAUDIO FROM [facility] WHO STATES SHE IS COMING TO OUR FACILITY AND MEETING WITH FAMILY AT 1230 TO DISCUSS THE HOSPICE PROGRAM PER FAMILY REQUEST. ARRANGED FOR THEM ALL TO MEET IN ED QUIET ROOM WITH NURSING DOUBLER OPERATOR.
--- NOTE | 2019-08-27 13:13 | NUR ---
IV PUMP ALARMING. IV FLUIDS STOPPED PER VERBAL ORDER FROM DR. WALKER. PATIENT WITHOUT SIGNS OF PAIN OR DISCOMFORT AT THIS TIME. FAMILY MEMBER REMAINS AT BEDSIDE AT THIS TIME. ALLOWED TO REST AT THIS TIME. SIDE RAILS UP X2. URINE CLEARING, BUT STILL BLOOD TINGED AT THIS TIME.
--- NOTE | 2019-08-27 13:33 | NUR ---
FAMILY IS BACK IN ROOM AND REQUESTING TO TALK WITH DR WALKER AND MYSELF. MET WITH FAMILY AND DR WALKER. QUESTIONS ANSWERED REGARDING TIMING ON WHEN TO MOVE PATIENT TO [facility] FOR [facility]OS[facility] CARE. AFTER A DISCUSSION THEY HAVE DECIDED TO GO AHEAD WITH DISCHARGE AND TRANSFER THIS AFTERNOON. DR WALKER WILL WRITE DISCHARGE. I STAYED AND WENT OVER MEDICARE BENEFITS AND DETAILS OF HOW WE WILL SET UP THE DISCHARGE AND TRANSFER TO FACILITY. QUESTIONS ANSWERED. CALLED CLAUDIO FROM [facility] HOSPICE PROGRAM. SHE STATES SHE WILL BE MEETING PATIENT AT FACILITY. SHE IS ARRANGING FOR OXYGEN SET UP TO BE DELIVERED TO FACILITY, SHE REQUESTS THAT PATIENT BE DISCHARGED AND TRANSFERRED AROUND 330PM. SHE IS TRYING TO GET MEDICATIONS BROUGHT FROM [facility], SHE STATES IF SHE CAN'T GET IT FILLED BEFORE HE COMES, SHE IS REQUESTED HE BE SENT HOME WITH AT LEAST ONE DOSE FOR FACILITY TO GIVE IF NEEDED. DISCUSSED I WILL TALK WITH TALENT DEVELOPMENT DIRECTOR TO LOOK INTO THIS. [facility]ED [facility]. SPOKE WITH ABEL WHO STATES THEY HAVE BEEN TALKING WITH HOSPICE AND THEY ARE WILLING TO ACCEPT HIM WHEN HE IS DISCHARGED. PATIENT HAS HOSPITAL BED IN ROOM, HE STATES HOSPICE IS GOING TO ARRANGE OXYGEN. HE HAS NO QUESTIONS.
[2019-08-27] MEDS ORDERED: MORPHINE S10 MG/5 ML SL (13:56)
--- NOTE | 2019-08-27 14:25 | NUR ---
REPORT CALLED TO TRA MOORE AT [facility].
--- NOTE | 2019-08-27 14:33 | NUR ---
PATIENT CONTINUES WITH RESTLESSNESS AT THIS TIME. FAMILY REQUESTS MORE PAIN MEDICATION. MEDICATION GIVEN PRESCRIBED. ATTEMPT TO REPLACE O2 PER FAMILY REQUEST. PATIENT PULLS OFF AT THIS TIME. DENY OTHER NEEDS.
--- NOTE | 2019-08-27 14:44 | NUR ---
UPDATED STAFF AND FAMILY ON POSSIBLE 330PM TRANSFER TO FACILITY. CAPACITY ANALYST WILL ARRANGE NON-EMERGENT EMS. SHE ALSO IS TALKING WITH PHARMACY REGARDING PARTIAL FILL MEDICATION TO SEND. SHE UNDERSTANDS WILL WILL SEND HIM ON PORTABLE OXYGEN.
--- NOTE | 2019-08-27 14:46 | NUR ---
HAD MESSAGE FROM TAMY ADJUNCT SOCIOLOGY PROFESSOR AT FACILITY FOR AN UPDATE ON PATIENTS PLAN. RETURNED CALL, SHE STATES SHE SPOKE WITH ABEL AND WAS UPDATED. SHE HAD NO FURTHER QUESTIONS.
--- NOTE | 2019-08-27 15:28 | NUR ---
EMS HERE TO TAKE PATIENT TO [facility]. CALLED [facility] AND SPOKE WITH ABEL TO LET HIM KNOW PATIENT WILL BE ARRIVING SOON. CALLED CLAUDIO FROM [facility] TO ALERT HER THAT PATIENT WILL BE LEAVING FACILITY. DISCUSSED THAT A FEW DOSES OF MORPHINE WAS DISPENSED WITH EMS. SHE STATES SHE IS AT FACILITY AND WILL BE THERE TO ACCEPT PATIENT. SHE STATES HER DME WILL BE THERE WITHIN 1/2 HOUR FOR OXYGEN SET UP. EMS WILL LEAVE PORTABLE BOTTLE TO BE PICKED UP LATER BY US. SHE STATES HER HOSPICE MEDICATIONS SHOULD BE AT FACILITY WITHIN THE HOUR. FAMILY IN ROOM WHEN EMS ARRIVED. THEY WILL MEET PATIENT AT FACILITY.
== END 2019-08-27 15:25 | disposition home or self-care (01) ==
LOC: ED 20:09 → MS 20:10
PROVIDERS: ADMIT Student in an Organized Health Care Education/Training Program
DX: R00.1 Bradycardia, unspecified (principal); I50.32 Chronic diastolic (congestive) heart failure; I48.19 Other persistent atrial fibrillation; I21.4 Non-ST elevation (NSTEMI) myocardial infarction; N17.9 Acute kidney failure, unspecified; I27.20 Pulmonary hypertension, unspecified; I34.0 Nonrheumatic mitral (valve) insufficiency; N18.9 Chronic kidney disease, unspecified; E87.6 Hypokalemia; E03.9 Hypothyroidism, unspecified; G47.33 Obstructive sleep apnea (adult) (pediatric); Z79.899 Other long term (current) drug therapy; Z79.01 Long term (current) use of anticoagulants
CPT/HCPCS: 36415; 51701; 51702; 51798; 70450; 71045; 80048; 80053; 81001; 82140; 82550; 83735; 83880; 84132; 84443; 84484; 85025; 85610; 85730; 93005; 93010; 93306; 93971; 96365; 96366; 96375; 96376; 97163; 99285-25; G0378; J2060; J2270; J3480; J7060; J7121; U0002